=== PATIENT | male | born 1960 | race Caucasian/White ===

== ENCOUNTER → 2021-10-15 13:30 | Outpatient (BNVA) | payer SELFPAY | PROVIDERS: Family Provider Family Medicine; PCP Family Medicine; Visit Provider Family Medicine | DX: R10.32 Left lower quadrant pain (principal); E11.8 Type 2 diabetes mellitus with unspecified complications | CPT/HCPCS: 80053; 83036; 85025; 86140 ==

== ENCOUNTER → 2023-04-25 08:13 | Outpatient (BNVA) | payer SELFPAY | PROVIDERS: Family Provider Family Medicine; PCP Family Medicine; Visit Provider Family Medicine | DX: E11.9 Type 2 diabetes mellitus without complications (principal); Z51.81 Encounter for therapeutic drug level monitoring; R10.9 Unspecified abdominal pain; R53.81 Other malaise; R53.83 Other fatigue | CPT/HCPCS: 80053; 83036; 84443; 85025; 86141 ==

== ENCOUNTER 2023-06-16 17:07 | Outpatient (CLI) | payer SELFPAY ==
--- NOTE | 2023-06-16 17:00 | CT_ITS ---
WS: [id number] CT ABDOMEN AND PELVIS WITH CONTRAST HISTORY: Abdominal pain, RIGHT lower quadrant pain into the flank. TECHNIQUE: Imaging performed of the abdomen and pelvis with IV contrast. Single phase imaging of the abdomen. Coronal and sagittal reformats are submitted. All CT scans at [facility] use at [address] one of these dose optimization techniques: automated exposure control; mA and/or kV adjustment per patient size (includes targeted exams where dose is matched to clinical indication); or iterative re construction. IV CONTRAST: Omnipaque 350; 100 mL IV. Oral contrast: No DLP: 678.23 mGy.cm COMPARISON: None available. Lower thorax: 2 mm micronodule LEFT lung base. No mass. Heart is normal size. No hiatal hernia. Liver/biliary system: Normal size with no intrahepatic dilatation. Gallbladder: Status post cholecystectomy. Pancreas: Normal size pancreas and pancreatic duct. No adjacent inflammation. Spleen: Normal size spleen. No mass or infarct. Adrenal glands: Normal. Right kidney: Normal. Left kidney: Normal. Aorta: Mild atherosclerosis with no aneurysm. Small amount of noncalcified plaque in the proximal SMA but there is no occlusion. Celiac axis is normal. Lymphadenopathy: None. Free fluid: None. GI tract: Mild symmetric wall thickening of the stomach. There is a small filling defect within the s tomach along the greater curvature which could be a polyp. Also could be debris within the stomach. T his measures approximately 7 mm. No small bowel obstruction. Normal appendix. Abdominal wall: Unremarkable abdominal wall. No hernia. Pelvis: No free fluid or adenopathy within the pelvis. Bones: Prior LEFT lateral pedicle fusion at L1 3 4. Moderate LEFT and RIGHT foraminal narrowing at L3 -4. Osteophytic ridging around the femoral heads. Very dense calcification in the soft tissue of the LEFT pelvis near the acetabulum may be posttraumatic. IMPRESSION: 1. No acute abdominal or pelvic findings. 2. Normal appendix. 3. No significant diverticular disease. 4. No GI tract obstruction. 5. There is a small polypoid-like density within the stomach along the greater curvature. This may b e debris or a small gastric polyp. If clinically thought necessary this can be further evaluated by e ndoscopy. 6. Prior cholecystectomy. 7. No renal obstruction. 8. Mild atherosclerosis aorta and a small amount of noncalcified plaque in the proximal SMA.
[2023-06-16] MEDS: iohexol 350 mg/mL 500 mL Btl (per mL) IV (17:26)
== END 2023-06-16 17:08 | disposition home or self-care (01) ==
LOC: RAD 17:07
PROVIDERS: Family Provider Family Medicine; PCP Family Medicine; Visit Provider Family Medicine
DX: R10.9 Unspecified abdominal pain (principal); R93.3 Abnormal findings on diagnostic imaging of other parts of digestive tract; Z90.49 Acquired absence of other specified parts of digestive tract; I70.0 Atherosclerosis of aorta; K55.1 Chronic vascular disorders of intestine
CPT/HCPCS: 74177; Q9967

== ENCOUNTER 2023-07-06 01:28 | Emergency (ER) | payer SELFPAY ==
[2023-07-06 01:59] VITALS: BP 180/97; PULSE 85; RESP 18; TEMP 36.7; O2SAT 98
--- NOTE | 2023-07-06 02:07 | CTR_ITS ---
PROCEDURE INFORMATION: Exam: CT Abdomen And Pelvis Without Contrast Exam date and time: 07/06/2023 2:18 AM Age: 62 years old Clinical indication: Abdominal pain; Right; Prior surgery; Surgery date: 6+ months; Surgery type: Gb. Lumbar; Patient HX: C/O RT flank pain; Additional info: R flank pain TECHNIQUE: Imaging protocol: Computed tomography of the abdomen and pelvis without contrast. Radiation optimization: All CT scans at this facility use at least one of these dose optimization techniques: automated exposure control; mA and/or kV adjustment per patient size (includes targeted exams where dose is matched to clinical indication); or iterative reconstruction. COMPARISON: CT abdomen pelvis w con* [id number] 06/16/2023 5:18 PM RADIATION DOSE METRICS: Total DLP (mGy-cm): 856.3 FINDINGS: Liver: Normal. No mass. Gallbladder and bile ducts: Surgical clips are noted in gallbladder fossa compatible with a prior cholecystectomy. Pancreas: Normal. No ductal dilation. Spleen: Normal. No splenomegaly. Adrenal glands: Normal. No mass. Kidneys and ureters: The kidneys are normal in overall size and general contour without hydronephrosis or nephrolithiasis. Mild perinephric stranding is noted. Stomach and bowel: There is no evidence of small bowel obstruction. Colonic diverticulosis is noted. Stool is distributed throughout the colon. Appendix: No evidence of appendicitis. Intraperitoneal space: Unremarkable. No free air. No significant fluid collection. Vasculature: The abdominal aorta is normal in course and caliber with scattered calcific atheromatous plaque. Lymph nodes: Unremarkable. No enlarged lymph nodes. Urinary bladder: Unremarkable as visualized. Reproductive: Unremarkable as visualized. Bones/joints: Lumbar fixation hardware is present. Degenerative changes are noted in the bones. There is exostosis and calcific tendinopathy anterior to the left iliac bone. Soft tissues: Unremarkable. Other findings: Noncontrast technique limits assessment. CT/CT kidney stone [id number] IMPRESSION: Limited noncontrast CT. Postsurgical change. No evidence for urolithiasis or obstructive uropathy. Colonic diverticulosis.
[2023-07-06] MEDS: ondansetron 2 mg/ML SDV 2 mL 4 MG IVP (02:13)
[2023-07-06] MEDS: sodium chloride 0.9% 1,000 ML 999 ML IV (02:14)
[2023-07-06 02:17] LABS: Basophils # 0.1 10^3/uL (0.0-0.1); Basophils % 0.9 %; Eosinophils # 0.1 10^3/uL (0.0-0.8); Eosinophils % 1.1 %; Hematocrit 40.5 % (37-53); Lymphocytes # 1.8 10^3/uL (0.8-4.8); Lymphocytes % 24.2 %; Mean Corpuscular HGB Conc 35.6 g/dL (30-55); Mean Corpuscular Hemoglobin 31.2 pg (27-33); Mean Corpuscular Volume 87.7 fl (82-101); Mean Platelet Volume 9.6 fL (7.4-10.4); Monocytes # 0.4 10^3/uL (0.2-0.9); Monocytes % 4.8 %; Neutrophils # 5.13 10^3/uL (1.8-7.7); Neutrophils % 68.9 %; Nucleated Red Blood Cells % 0 %; Platelet Count 289 10^3/cmm (157-399); Red Blood Count 4.62 10^6/uL (3.85-5.65); Red Cell Distribution Width 12.5 % (12.1-15.1); White Blood Count 7.45 10^3/uL (3.29-11.43)
[2023-07-06 02:46] VITALS: RESP 18
[2023-07-06 02:46] LABS: Alanine Aminotransferase 27 U/L (0-41); Alkaline Phosphatase 71 U/L (40-130); Aspartate Amino Transferase 23 U/L (0-40); Blood Urea Nitrogen 10 mg/dL (8-23); Calcium 9.1 mg/dL (8.5-10.5); Carbon Dioxide 22 mmol/L (22-29); Chloride 100 mmol/L (98-107); Glomerular Filtration Rate 75.2 mL/min (90-130); Glucose 154 mg/dL (65-115); Lipase 37 U/L (13-60); Osmolality Calculated 280 mOsm/kg (285-295); Sodium 134 mmol/L (136-145); Total Bilirubin 0.4 mg/dL (0.15-1.2)
[2023-07-06] MEDS: morphine 4 mg/mL SDV 1 mL IVP (02:46)
[2023-07-06 02:50] LABS: Anion Gap 15.8 (5-19); Potassium 3.8 mmol/L (3.5-5.1)
[2023-07-06 03:02] VITALS: BP 172/99; PULSE 89; RESP 16; O2SAT 98
[2023-07-06 03:26] LABS: Add Urine Microscopic? NO; Charge for UA Resulting for Rev
[2023-07-06 03:31] LABS: Bilirubin Urine Neg (Negative); Blood Urine Neg (Negative); Glucose Urine UA 1+ (Normal); Ketones Urine Negative (Negative); Leukocyte Esterase Urine Negative (Negative); Nitrate Urine Negative (Negative); Protein Urine Neg (Negative); Specific Gravity, Urine 1.015 (1.005-1.030); Urine Appearance Clear (CLEAR); Urine Color Yellow (Yellow); Urobilinogen Urine Norm (Negative); pH Urine 5 (5-7)
[2023-07-06] MEDS: ketorolac 30 mg/mL INJ IVP (04:10)
[2023-07-06 04:56] VITALS: BP 177/107; PULSE 87; RESP 18; O2SAT 97
--- NOTE | 2023-07-06 16:27 | W.ED.ABDPA2 ---
HPI - Abdominal Pain General: Chief Complaint: Abdominal Pain Stated Complaint: possible kidney stone Time Seen by Provider: 07/06/23 02:03 History of Present Illness: 62 year old male with a distant prior history of kidney stone. He presents with right sided flank and right lower quadrant pain. He notes that he felt this pain a couple of weeks ago, but seemed to improve. It's been increased for the last couple of days, but tonight, the pain got severe. And he vomited in the lobby. No fever. No diarrhea. He has a history of cholecystectomy. MD elicited complaint: flank pain Associated Symptoms: Reports nausea and vomiting; Denies chills, diarrhea, dysuria, fever(s), hematochezia and hematuria Review of Systems Const: Denies: fever(s), chills or body aches Eyes: Denies: change in vision Card: Denies: chest pain or palpitations Resp: Denies: dyspnea, productive cough, non-productive cough or wheezing GI: Reports: abdominal pain, nausea and vomiting; Denies: diarrhea or hematochezia : Reports: flank pain; Denies: difficulty urinating, dysuria or hematuria Skin/Breast: Denies: rash Neuro: Denies: headache(s), weakness in extremities, dizziness or confusion PFSH ED PFSH: Medical History Myocardial infarction S/P stent - 2019, other lesions 40 and 60% blocked Thyroid nodule Biopsy in 2016 - [facility] History of DVT (deep vein thrombosis) 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 Diabetes mellitus type 2, uncontrolled Surgical History Benign tumor of groin Right groin tumor removal - Benign History of lumbar surgery L4-L5 surgery History of hip surgery H/O left knee surgery Scope for torn MCL History of cholecystectomy Hx of carpal tunnel repair right History of knee replacement Right knee x 3 - last 2013 Family History Father Colon cancer in 2010 Mother Alzheimer's dementia Social History Smoking and tobacco/nicotine status: never used tobacco/nicotine Alcohol intake: never Substance/Drug Use: never Physical Exam Const: COMMON NORMALS: no acute distress GENERAL APPEARANCE: cooperative and ill appearing (mildly); not frail appearing HENMT: COMMON NORMALS: normocephalic, atraumatic and Normal external nose present HEAD & SCALP: normocephalic and atraumatic FACE & SINUS: normal facial exam and face symmetric NOSE: Normal external nose present Eye: COMMON NORMALS: Equal, round and reactive pupils present and EOMs intact bilaterally PUPIL: Yes Equal, round and reactive pupils present Neck/C-Spine: GENERAL: Yes trachea midline Chest: CHEST: Yes Symmetrical chest wall rise Resp: COMMON NORMALS: normal respiratory effort, No retractions, No use of accessory muscles and clear to auscultation bilaterally AUSCULTATION: clear to auscultation bilaterally Cardio: COMMON NORMALS: regular rate and regular rhythm RATE: regular rate RHYTHM: regular rhythm GI: COMMON NORMALS: Normal to inspection, nondistended, normoactive bowel sounds present and Soft to palpation PALPATION: Yes Soft to palpation and Yes Tenderness to palpation present (GI) Details: RLQ : BLADDER/KIDNEY EXAM: Yes CVA tenderness on the right Back/Pelvis: GENERAL BACK: Yes CVA tenderness Extremity: COMMON NORMALS: no pedal edema Neuro: [place] COMA SCALE: document GCS findings [place] coma scale eye opening: Spontaneous [place] coma scale verbal response: Orientated [place] coma scale motor response: Obey commands [place] coma scale total score: 15 SENSORY EXAM: Yes extremities (intact) Psych: COMMON NORMALS: speech normal SPEECH: Yes normal speech Skin: COMMON NORMALS: no rashes or lesions noted GENERAL SKIN EXAM: no rashes or lesions noted Course Vital Signs: Vital signs: Vital Signs Temperature 98.0 F 07/06/23 01:59 Pulse Rate 87 07/06/23 04:56 Respiratory Rate 18 07/06/23 04:56 Blood Pressure 177/107 07/06/23 04:56 Pulse Oximetry 97 07/06/23 04:56 Oxygen Delivery Me thod Room Air 07/06/23 03:02 MDM - Abdominal Pain Medical Decision Making Right flank pain and RLQ pain. No fever. Pain much better controlled currently. CBC normal. CRP is 3. Lab otherwise not remarkable. CT scan does not show a cause. may be a passed stone. Enlarged bladder on CT. Pt voided afterward with 280 post void. Technically retention, but will elect not to place nicole at this time. Discharge to outpt fu. return for worsening symptoms. Lab Data 07/06/23 02:10 07/06/23 02:10 Labs/Radiology: Radiology Impressions Abdomen/Pelvis CT 07/06/23 02:07 IMPRESSION: Limited noncontrast CT. Postsurgical change. No evidence for urolithiasis or obstructive uropathy. Colonic diverticulosis. Laboratory Results WBC 7.45 10^3/uL (3.29-11.43) 07/06/23 02:10 RBC 4.62 10^6/uL (3.85-5.65) 07/06/23 02:10 Hgb 14.40 g/dL (11.27-16.99) 07/06/23 02:10 Hct 40.5 % (37-53) 07/06/23 02:10 MCV 87.7 fl (82-101) 07/06/23 02:10 MCH 31.2 pg (27-33) 07/06/23 02:10 MCHC 35.6 g/dL (30-55) 07/06/23 02:10 RDW 12.5 % (12.1-15.1) 07/06/23 02:10 Plt Count 289 10^3/cmm (157-399) 07/06/23 02:10 MPV 9.6 fL (7.4-10.4) 07/06/23 02:10 Neut % (Auto) 68.9 % 07/06/23 02:10 Lymph % (Auto) 24.2 % 07/06/23 02:10 Mcleod % (Auto) 4.8 % 07/06/23 02:10 Eos % (Auto) 1.1 % 07/06/23 02:10 Baso % (Auto) 0.9 % 07/06/23 02:10 Neut # (Auto) 5.13 10^3/uL (1.8-7.7) 07/06/23 02:10 Lymph # (Auto) 1.8 10^3/uL (0.8-4.8) 07/06/23 02:10 Mcleod # (Auto) 0.4 10^3/uL (0.2-0.9) 07/06/23 02:10 Eos # (Auto) 0.1 10^3/uL (0.0-0.8) 07/06/23 02:10 Baso # (Auto) 0.1 10^3/uL (0.0-0.1) 07/06/23 02:10 Nucleated RBC % (auto) 0 % 07/06/23 02:10 Nucleated RBCs # 0.0 /100WBC 07/06/23 02:10 Sodium 134 mmol/L (136-145) L 07/06/23 02:10 Potassium 3.8 mmol/L (3.5-5.1) 07/06/23 02:10 Chloride 100 mmol/L (98-107) 07/06/23 02:10 Carbon Dioxide 22 mmol/L (22-29) 07/06/23 02:10 Anion Gap 15.8 (5-19) 07/06/23 02:10 BUN 10 mg/dL (8-23) 07/06/23 02:10 Creatinine 1.0 mg/dL (0.7-1.2) 07/06/23 02:10 GFR Calculation 75.2 mL/min (90-130) L 07/06/23 02:10 Glucose 154 mg/dL (65-115) H 07/06/23 02:10 Calculated Osmolality 280 mOsm/kg (285-295) L 07/06/23 02:10 Calcium 9.1 mg/dL (8.5-10.5) 07/06/23 02:10 Total Bilirubin 0.4 mg/dL (0.15-1.2) 07/06/23 02:10 AST 23 U/L (0-40) 07/06/23 02:10 ALT 27 U/L (0-41) 07/06/23 02:10 Alkaline Phosphatase 71 U/L (40-130) 07/06/23 02:10 C-Reactive Protein 3.0 mg/L (0.0-4.9) 07/06/23 02:10 Total Protein 7.0 g/dL (6.6-8.7) 07/06/23 02:10 Albumin 4.0 g/dL (3.5-5.2) 07/06/23 02:10 Globulin 3.0 g/dL (1.3-4.6) 07/06/23 02:10 Lipase 37 U/L (13-60) 07/06/23 02:10 Urine Color Yellow (Yellow) 07/06/23 03:19 Urine Appearance Clear (CLEAR) 07/06/23 03:19 Urine pH 5 (5-7) 07/06/23 03:19 Ur Specific [place] 1.015 (1.005-1.030) 07/06/23 03:19 Urine Protein Neg (Negative) 07/06/23 03:19 Urine Glucose (UA) 1+ (Normal) H 07/06/23 03:19 Urine Ketones Negative (Negative) 07/06/23 03:19 Urine Blood Neg (Negative) 07/06/23 03:19 Urine Nitrate Negative (Negative) 07/06/23 03:19 Urine Bilirubin Neg (Negative) 07/06/23 03:19 Urine Urobilinogen Norm mg/dL (Negative) 07/06/23 03:19 Ur Leukocyte Esterase Negative (Negative) 07/06/23 03:19 All radiology interpretation(s) finalized by discharge Discharge Plan Discharge Patient Disposition: Home Clinical Impression: Renal colic on right side Condition: Stable Prescriptions: New hydrocodone-acetaminophen 5-325 mg tablet 1 tab PO Q8H PRN (Reason: pain) Qty: 7 0RF ketorolac 10 mg tablet 10 mg PO TID PRN (Reason: pain) Qty: 10 0RF ondansetron 4 mg tablet,disintegrating 4 mg PO Q6H PRN (Reason: nausea and vomiting) Qty: 14 0RF No Action metformin 1,000 mg tablet 1,000 mg PO BID Qty: 60 6RF atorvastatin 20 mg tablet 20 mg PO DAILY Qty: 30 3RF (DME) Dexcom G7 Marketing Finance Specialist Misc See Rx Instructions .Route Qty: 1 0RF Rx Instructions: As directed (DME) Dexcom G7 Sensor Device See Rx Instructions .Route Qty: 1 0RF Rx Instructions: As directed glipizide 10 mg tablet 5 mg PO BID insulin glargine [Lantus Solostar U-100 Insulin] 100 unit/mL (3 mL) insulin pen 30 unit SUBCUT DAILY Qty: 15 3RF Rx Instructions: Increase by 5 units every 3 days if all fasting glucose above 150 (DME) pen needle, diabetic [BD Ultra-Fine Orig Pen Needle] 29 gauge x 1/2 needle See Rx Instructions .Route Qty: 100 3RF Rx Instructions: As directed hydrochlorothiazide 12.5 mg tablet 12.5 mg PO DAILY Qty: 30 6RF Discharge Orders: Discharge ED (Routine); Ordered 07/06/23 Ordered By: Jamir Cardona Referrals: Carrillo Suarez MD [Primary Care Provider] - 1-3 days Patient Instructions: Renal Colic (ED), Abdominal Pain (ED), Opioid Safety, Pain Management Activity Restrictions/Additional Instructions: Use medication as needed. Return for worsening pain despite treatment, fever greater than 100, vomiting liquids or medications, other concerning symptoms. See your doctor this coming week. 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
== END 2023-07-06 04:57 | disposition home or self-care (01) ==
PROVIDERS: Emergency Provider Emergency Medicine; PCP Family Medicine
DX: N23 Unspecified renal colic (principal); Z79.84 Long term (current) use of oral hypoglycemic drugs; Z79.4 Long term (current) use of insulin; I25.2 Old myocardial infarction; E11.9 Type 2 diabetes mellitus without complications
CPT/HCPCS: 51798; 74176; 80053; 81003; 83690; 85025; 86140; 96361; 96374; 96375; 99285; J1885; J2270; J2405; J7030

== ENCOUNTER → 2023-07-29 16:12 | Outpatient (BNVA) | payer SELFPAY | PROVIDERS: PCP Family Medicine; Visit Provider Family Medicine | DX: R10.9 Unspecified abdominal pain (principal); E11.9 Type 2 diabetes mellitus without complications; R30.0 Dysuria | CPT/HCPCS: 87086 ==

== ENCOUNTER 2023-12-18 06:21 | Emergency (ER) | payer MEDICARE, OTHER, SELFPAY ==
[2023-12-18 06:30] VITALS: BP 174/140; PULSE 105; RESP 20; TEMP 36.6; O2SAT 98; BMI 25.0
--- NOTE | 2023-12-18 06:30 | W.ED.GENADLT ---
HPI - General Adult General: Chief complaint: Back Pain/Injury Stated complaint: Back,leg, and lower abd pain Time Seen by Provider: 12/18/23 06:28 History of Present Illness: 63-year-old male presents emergency room complaining of pain in the groin radiating down the left leg. Began several weeks ago it has been more severe in the last week he was seen about a week ago by a chiropractor and had an adjustment done he said it actually seemed to get worse after that. He was seen again yesterday by another chiropractor had a similar experience and that the pain was worse after the treatment. On arrival he is sitting on the bed does not tolerate exam well due to pain. Patient also recently had a colonoscopy and EGD in June of this year he had a CT is a question of a gastric mass although subsequent CT did not show a gastric graft there was a question of the first 1 if it was just food debris. Per the patient EGD was normal but 2 colon polyps were removed. He is also complaining of groin pain and a swollen left testicle but denies any dysuria urgency or frequency or hematuria. No trauma to the testicles. Patient is an insulin-dependent diabetic. Patient previously has had back surgery at the L4-5 level Associated symptoms: Deny chest pain, dyspnea or rash Review of Systems Const: Denies: fever(s) or chills Card: Denies: chest pain Resp: Denies: dyspnea GI: Denies: abdominal pain : Reports: testicular pain and scrotal swelling (Left testicle swollen); Denies: dysuria, urinary frequency or urinary urgency Musc: Reports: back pain; Denies: neck pain Skin/Breast: Denies: rash [facility] ED PFSH: Medical History Myocardial infarction S/P stent - 2019, other lesions 40 and 60% blocked Thyroid nodule Biopsy in 2016 - [facility] History of DVT (deep vein thrombosis) 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 Diabetes mellitus type 2, uncontrolled Surgical History Benign tumor of groin Right groin tumor removal - Benign History of lumbar surgery L4-L5 surgery History of hip surgery H/O left knee surgery Scope for torn MCL History of cholecystectomy Hx of carpal tunnel repair right History of knee replacement Right knee x 3 - last 2013 Family History Father Colon cancer in 2010 Mother Alzheimer's dementia Social History Smoking and tobacco/nicotine status: never used tobacco/nicotine Alcohol intake: never Substance/Drug Use: never Physical Exam Const: GENERAL APPEARANCE: cooperative ORIENTATION/CONSCIOUSNESS: Yes awake, Yes oriented to person, Yes oriented to place and Yes oriented to time HENMT: COMMON NORMALS: normocephalic, atraumatic and hearing grossly normal bilaterally HEAD & SCALP: normocephalic and atraumatic Resp: COMMON NORMALS: normal respiratory effort, No retractions, No use of accessory muscles and clear to auscultation bilaterally AUSCULTATION: clear to auscultation bilaterally Cardio: COMMON NORMALS: regular rate, regular rhythm and No murmurs present (Cardio) RATE: regular rate RHYTHM: regular rhythm GI: COMMON NORMALS: Soft to palpation and No hepatosplenomegaly present AUSCULTATION: Yes normoactive bowel sounds PALPATION: Yes Soft to palpation, No Tenderness to palpation present (GI), No Guarding due to palpation present (GI) and Yes No hepatosplenomegaly present Extremity: COMMON NORMALS: normal to inspection, capillary refill normal, no clubbing, cyanosis or edema, no calf tenderness and no pedal edema OTHER: Straight leg raising positive in the left leg dorsal/plantarflexion strength in the left leg is somewhat decreased although is difficult to fully assess due to pain. Deep tendon reflex patellar tendon on the left +1 of 4. Neuro: SENSORIUM/ORIENTATION: Yes oriented to person, Yes oriented to place and Yes oriented to time Skin: COMMON NORMALS: no rashes or lesions noted GENERAL SKIN EXAM: no rashes or lesions noted Course Vital Signs: Vital signs: Vital Signs Temperature 97.9 F 12/18/23 06:35 Pulse Rate 76 12/18/23 10:34 Respiratory Rate 18 12/18/23 07:03 Blood Pressure 180/98 12/18/23 10:34 Pulse Oximetry 97 12/18/23 10:34 Oxygen Delivery Me thod Room Air 12/18/23 06:42 [facility] - General Adult Medical Decision Making Symptoms are improved. He has not had any fecal incontinence he does have some urinary retention but believe it is due to his BPH. On repeat exam he was much improved his deep tendon reflexes are +2/4 patellar tendon sensation lower extremities is normal and straight legs raising test elicits less pain. Will discharge him home and set him up for a MRI of the lumbar spine. There is. If he has worsening symptoms. We did also start him on tamsulosin alone. Lab Data 12/18/23 07:09 12/18/23 07:09 Radiology Impressions Scrotum Ultrasound 12/18/23 09:03 IMPRESSION: 1. No testicular mass or torsion identified. 2. No hydrocele. 3. No epididymitis. Laboratory Results WBC 7.12 10^3/uL (3.29-11.43) 12/18/23 07:09 RBC 4.67 10^6/uL (3.85-5.65) 12/18/23 07:09 Hgb 14.80 g/dL (11.27-16.99) 12/18/23 07:09 Hct 41.8 % (37-53) 12/18/23 07:09 MCV 89.5 fl (82-101) 12/18/23 07:09 MCH 31.7 pg (27-33) 12/18/23 07:09 MCHC 35.4 g/dL (30-55) 12/18/23 07:09 RDW 12.9 % (12.1-15.1) 12/18/23 07:09 Plt Count 302 10^3/cmm (157-399) 12/18/23 07:09 MPV 9.9 fL (7.4-10.4) 12/18/23 07:09 Neut % (Auto) 69.9 % 12/18/23 07:09 Lymph % (Auto) 21.5 % 12/18/23 07:09 [place] % (Auto) 6.7 % 12/18/23 07:09 Eos % (Auto) 0.8 % 12/18/23 07:09 Baso % (Auto) 0.8 % 12/18/23 07:09 Neut # (Auto) 4.97 10^3/uL (1.8-7.7) 12/18/23 07:09 Lymph # (Auto) 1.5 10^3/uL (0.8-4.8) 12/18/23 07:09 [place] # (Auto) 0.5 10^3/uL (0.2-0.9) 12/18/23 07:09 Eos # (Auto) 0.1 10^3/uL (0.0-0.8) 12/18/23 07:09 Baso # (Auto) 0.1 10^3/uL (0.0-0.1) 12/18/23 07:09 Nucleated RBC % (auto) 0 % 12/18/23 07:09 Nucleated RBCs # 0.0 /100WBC 12/18/23 07:09 Sodium 136 mmol/L (136-145) 12/18/23 07:09 Potassium 4.2 mmol/L (3.5-5.1) 12/18/23 07:09 Chloride 99 mmol/L (98-107) 12/18/23 07:09 Carbon Dioxide 25 mmol/L (22-29) 12/18/23 07:09 Anion Gap 16.2 (5-19) 12/18/23 07:09 BUN 12 mg/dL (8-23) 12/18/23 07:09 Creatinine 0.8 mg/dL (0.7-1.2) 12/18/23 07:09 GFR Calculation 97.0 mL/min (90-130) 12/18/23 07:09 Glucose 179 mg/dL (65-115) H 12/18/23 07:09 Calculated Osmolality 286 mOsm/kg (285-295) 12/18/23 07:09 Calcium 8.9 mg/dL (8.5-10.5) 12/18/23 07:09 Total Bilirubin 0.7 mg/dL (0.15-1.2) 12/18/23 07:09 AST 19 U/L (0-40) 12/18/23 07:09 ALT 27 U/L (0-41) 12/18/23 07:09 Alkaline Phosphatase 61 U/L (40-130) 12/18/23 07:09 Total Protein 7.3 g/dL (6.6-8.7) 12/18/23 07:09 Albumin 4.3 g/dL (3.5-5.2) 12/18/23 07:09 Globulin 3.0 g/dL (1.3-4.6) 12/18/23 07:09 Urine Color Yellow (Yellow) 12/18/23 07:55 Urine Appearance Clear (CLEAR) 12/18/23 07:55 Urine pH 5.0 (5-7) 12/18/23 07:55 Ur Specific [place] 1.029 (1.005-1.030) 12/18/23 07:55 Urine Protein Trace (Negative) A 12/18/23 07:55 Urine Glucose (UA) 2+ (Normal) H 12/18/23 07:55 Urine Ketones 1+ (Negative) H 12/18/23 07:55 Urine Blood Negative (Negative) 12/18/23 07:55 Urine Nitrate Negative (Negative) 12/18/23 07:55 Urine Bilirubin Negative (Negative) 12/18/23 07:55 Urine Urobilinogen 1.0 mg/dL (Negative) 12/18/23 07:55 Ur Leukocyte Esterase Negative (Negative) 12/18/23 07:55 Urine RBC 0-2 /hpf (0-2) 12/18/23 07:55 Urine WBC 0-5 /hpf (0-5) 12/18/23 07:55 Ur Squamous Epith Cells 0-5 /hpf (0-5) 12/18/23 07:55 Amorphous Sediment Not Reportable 12/18/23 07:55 Urine Bacteria None seen /hpf (NONE) 12/18/23 07:55 Hyaline Casts 4.95 /lpf 12/18/23 07:55 All radiology interpretation(s) finalized by discharge Discharge Plan Discharge Patient Disposition: Home Clinical Impression: Lumbar radiculopathy, Diabetes mellitus type 2, uncontrolled, Benign prostatic hyperplasia, Epididymitis Condition: Stable Prescriptions: New tamsulosin 0.4 mg capsule 0.4 mg PO DAILY Qty: 30 0RF tizanidine 4 mg tablet 4 mg PO Q6H PRN (Reason: muscle spasticity) Qty: 20 0RF Rx Instructions: do not exceed 3 doses per 24 hrs hydrocodone-acetaminophen 5-325 mg tablet 1 tab PO Q6H PRN (Reason: pain) Qty: 12 0RF diclofenac sodium 75 mg tablet,delayed release (DR/EC) 75 mg PO Q12H PRN (Reason: pain) Qty: 20 0RF Medrol (Luis) 4 mg tablets,dose pack See Rx Instructions .ROUTE .COMPLEX Qty: 21 0RF Rx Instructions: orally per package directions Discontinued ketorolac 10 mg tablet 10 mg PO TID PRN (Reason: Pain) No Action (DME) Dexcom G7 Technical Services Consultant Misc See Rx Instructions .Route Qty: 1 0RF Rx Instructions: As directed (DME) Dexcom G7 Sensor Device See Rx Instructions .Route Qty: 1 0RF Rx Instructions: As directed glipizide 10 mg tablet 10 mg PO BID metformin 1,000 mg tablet 500 mg PO BID (DME) pen needle, diabetic [BD Ultra-Fine Orig Pen Needle] 29 gauge x 1/2 needle See Rx Instructions .Route Qty: 100 3RF Rx Instructions: As directed hydrochlorothiazide 12.5 mg tablet 12.5 mg PO DAILY Qty: 30 6RF omeprazole 40 mg capsule,delayed release(DR/EC) 40 mg PO DAILY Qty: 90 3RF insulin glargine [Lantus Solostar U-100 Insulin] 100 unit/mL (3 mL) insulin pen See Rx Instructions .ROUTE .COMPLEX Qty: 15 6RF Dose Instruction: INJECT 30 UNITS UNDER THE SKIN ONCE DAILY. INCREASE BY 5 UNITS EVERY 3 DAYS IF ALL FASTING GLUCOSE ABOVE 150 Rx Instructions: INJECT 30 UNITS UNDER THE SKIN ONCE DAILY. INCREASE BY 5 UNITS EVERY 3 DAYS IF ALL FASTING GLUCOSE ABOVE 150 hydrocodone-acetaminophen 5-325 mg tablet 1 tab PO Q6H PRN (Reason: Pain, Severe) Discharge Orders: Discharge ED (Routine); Ordered 12/18/23 Ordered By: Tray Walker Referrals: Carrillo Suarez MD [Primary Care Provider] - Discharge Diet: Usual diet Discharge Activity: Increase activity as tolerated Patient Instructions: Opioid Safety, Pain Management Activity Restrictions/Additional Instructions: Thank you for choosing [facility] for your healthcare needs today. It is very important that you follow up as instructed or that you return to the Emergency Department should you have concerns or if your condition changes or worsens in any way. You are seen in the emergency room and back pain with left leg symptoms. Symptoms and function improved with pain control in the emergency room. Do recommend that you have an MRI of your lumbar spine. 1 has been ordered but you should need to follow-up with your primary care doctor. site project manager will make an appointment for an MRI tomorrow AM. If you have worsening symptoms return. You did complain of pain in the testicles as well. There are some mild epididymitis this is likely inflammatory due to your previous vasectomy the steroids and anti-inflammatories will be helpful with this. Coding Level of Care Code ED Dry Placer Machine Operator for Brandie Kaplan
[2023-12-18 06:35] VITALS: BP 174/140; PULSE 105; RESP 20; TEMP 36.6; O2SAT 98
[2023-12-18 06:42] VITALS: BP 150/121; PULSE 96; RESP 16; O2SAT 98
[2023-12-18] MEDS: ondansetron 2 mg/ML SDV 2 mL 4 MG IVP (07:00)
[2023-12-18] MEDS: dexamethasone 10 mg/mL INJ IM (07:01)
[2023-12-18] MEDS: ketorolac 30 mg/mL INJ IVP (07:02)
[2023-12-18 07:03] VITALS: RESP 18; O2SAT 98
[2023-12-18] MEDS: morphine 4 mg/mL SDV 1 mL IVP (07:03)
[2023-12-18] MEDS: orphenadrine 30 mg/mL Inj 2 mL 60 MG IM (07:04)
[2023-12-18 07:20] LABS: Basophils # 0.1 10^3/uL (0.0-0.1); Basophils % 0.8 %; Eosinophils # 0.1 10^3/uL (0.0-0.8); Eosinophils % 0.8 %; Hematocrit 41.8 % (37-53); Lymphocytes # 1.5 10^3/uL (0.8-4.8); Lymphocytes % 21.5 %; Mean Corpuscular HGB Conc 35.4 g/dL (30-55); Mean Corpuscular Hemoglobin 31.7 pg (27-33); Mean Corpuscular Volume 89.5 fl (82-101); Mean Platelet Volume 9.9 fL (7.4-10.4); Monocytes # 0.5 10^3/uL (0.2-0.9); Monocytes % 6.7 %; Neutrophils # 4.97 10^3/uL (1.8-7.7); Neutrophils % 69.9 %; Nucleated Red Blood Cells % 0 %; Platelet Count 302 10^3/cmm (157-399); Red Blood Count 4.67 10^6/uL (3.85-5.65); Red Cell Distribution Width 12.9 % (12.1-15.1); White Blood Count 7.12 10^3/uL (3.29-11.43)
[2023-12-18 07:37] LABS: Alanine Aminotransferase 27 U/L (0-41); Albumin Level 4.3 g/dL (3.5-5.2); Alkaline Phosphatase 61 U/L (40-130); Anion Gap 16.2 (5-19); Aspartate Amino Transferase 19 U/L (0-40); Blood Urea Nitrogen 12 mg/dL (8-23); Calcium 8.9 mg/dL (8.5-10.5); Carbon Dioxide 25 mmol/L (22-29); Chloride 99 mmol/L (98-107); Glucose 179 mg/dL (65-115); Osmolality Calculated 286 mOsm/kg (285-295); Potassium 4.2 mmol/L (3.5-5.1); Sodium 136 mmol/L (136-145); Total Bilirubin 0.7 mg/dL (0.15-1.2); Total Protein 7.3 g/dL (6.6-8.7)
--- NOTE | 2023-12-18 07:44 | PC.PHAR ---
PT STATES STILL TAKES GLIPIZIDE 10MG TWICE DAILY-LAST FILL DATE 05/30/23 STOPPED TAKING FOR AWHILE, AND METFORMIN 1,000MG TWICE DAILY LAST FILL 07/28/23 30DS.
[2023-12-18 08:06] LABS: Charge for UA Resulting for Rev
[2023-12-18 08:08] LABS: Bilirubin Urine Negative (Negative); Blood Urine Negative (Negative); Glucose Urine UA 2+ (Normal); Ketones Urine 1+ (Negative); Leukocyte Esterase Urine Negative (Negative); Nitrate Urine Negative (Negative); Protein Urine Trace (Negative); Specific Gravity, Urine 1.029 (1.005-1.030); Urine Appearance Clear (CLEAR); Urine Color Yellow (Yellow)
[2023-12-18 08:13] LABS: Bacteria Urine None Seen /hpf; Hyaline Casts Urine 4.95 /lpf; RBC Urine 0-2 /hpf (0-2); Squamous Epithelial Cell Urine 0-5 /hpf (0-5); WBC Urine 0-5 /hpf (0-5)
--- NOTE | 2023-12-18 09:03 | US_ITS ---
WS: [id number] TESTICULAR ULTRASOUND HISTORY: pain COMPARISON: None available. TECHNIQUE: Real-time and color Doppler imaging or utilized to perform a testicular ultrasound. Right testicle: 4.3 cm x 2.8 cm x 2.9 cm. Normal size and echogenicity. No mass or torsion. Normal color Doppler is present throughout. Systolic and diastolic velocities are both present. No significant hydrocele. Right epididymis: Normal epididymis with no increased vascularity. Left testicle: 3.1 cm x 2.9 cm x 3.1 cm. Normal size and echogenicity. No mass or torsion. There is a cyst in the periphery of the LEFT testic le which may be a tunica albuginea cyst. No solid mass. Normal color Doppler is present throughout. Systolic and diastolic velocities are both present. No significant hydrocele. Left epididymis: Mildly thickened epididymis. No evidence for acute epididymitis. US/US scrotum [id number] IMPRESSION: 1. No testicular mass or torsion identified. 2. No hydrocele. 3. No epididymitis.
[2023-12-18 09:18] VITALS: BP 183/103; PULSE 76; O2SAT 97
[2023-12-18 10:34] VITALS: BP 180/98; PULSE 76; O2SAT 97
== END 2023-12-18 10:36 | disposition home or self-care (01) ==
PROVIDERS: Emergency Provider Family Medicine; PCP Family Medicine
DX: N45.1 Epididymitis (principal); E11.9 Type 2 diabetes mellitus without complications; M54.16 Radiculopathy, lumbar region; N40.0 Benign prostatic hyperplasia without lower urinary tract symptoms; Z79.4 Long term (current) use of insulin; Z79.84 Long term (current) use of oral hypoglycemic drugs; I25.2 Old myocardial infarction
CPT/HCPCS: 76870; 80053; 81003; 81015; 85025; 96372; 96374; 96375; 99285; J1100; J1885; J2270; J2360; J2405

== ENCOUNTER 2024-12-18 19:25 | Emergency (ER) | payer MEDICARE, OTHER, SELFPAY ==
--- OUTSIDE RECORDS SUMMARY | 2019-03-22 05:40 | XMS_ITS | Continuity of Care Document ---
Author Organization [facility] Address [address] [place] [address] Phone Care Team Providers Care Tin Flipper Name Role Phone Xiomara Whipple NP Unavailable Unavailable Allergies, Adverse Reactions, Alerts Substance Reaction Status Criticality No Known Allergies Active No Inform ation Medications Medication Instructions Dosage Effective Dates (start - stop) Status Comments Voltaren 1 % topical gel apply thin layer by topical route 4 times every day to the affected area(s) - Active aspirin 81 mg tablet,delayed release take 1 tablet by oral route every day 81 MG - Active clopidogrel 75 mg tablet take 1 tablet by oral route every day 75 MG - Active metoprolol succinate ER 25 mg tablet,extended release 24 hr take 1 tablet by oral route every day 25 MG - Active omeprazole 20 mg capsule,delayed release take 1 capsule by oral route 2 times every day 30 minutes to 1 hour before a meal 20 MG - Active metformin 1,000 mg tablet take 1 tablet by oral route every day in morning - Active Procedures Procedure Date OFFICE/OUTPATIENT VISIT [facility] Advance Directives Directive Yes / No Effective Date File Name Other Directive No N/A N/A WARNING:The information contained in this section is historical and is provided for information only and does not constitute a legal document or any assurance that the information is still accurate. Please verify the information with the ortiz of the legal document before using it for clinical purposes. Encounters Encounter Description Practice Location Reason(s) For Visit Diagnoses Date Provider Providers Copied on Encounter OFFICE/OUTPA TIENT VISIT [facility], [address] [place] [address], [id number], [place] tel:[phone] [facility] Heart disease (chief complaint) Musculoske letal pain (chief complaint) hand pain (chief complaint) Adult BMI 31.0-31.9Coronary artery disease with angina pectoris, unspecified vessel or lesion type, unspecified whether [place] or transplanted heartOsteoarthritis of multiple joints, unspecified osteoarthritis typeRight hand pain 9 Sarabjit Solano. [address] [place] [address], [id number], . tel:[phone] Referring Provider: Xiomara Whipple, [address] [place] [address], [id number] . tel:[phone] Family History Family Member Type Diagnosis Age At Onset No Information Payers Payer name Insurance type Covered republican ID Authoriza tion(s) No Information Social History Type Description Quantity Date Captured Comments Alcohol Use Details Unknown Caffeine Use Details Unknown Tobacco Use Status Current non-smoker 19 Smoking Status Never smoker Non-Smoking Tobacco Use Details : No Details Available : No Details Available Sex Male Sexual Orientation Straight or heterosexual Gender Identity Male Vital Signs Date / Time: Height Weight BMI Pulse Rate Blood Pressure Temperature Respiratory Rate Body Surface Area Head Circumference Head Circ. Percentile Wt./Rolando. Percentile BMI percentile Pulse Ox Inhaled Ox 11:02 AM 74.00 in 109.769 kg (242.00 lbs) 31.0 7 kg/m eter (2) 76 /min 120/70 mm[Hg] 97.80 F 98 % Chief Complaint And Reason For Visit From encounter dated '03/22/2019 10:40'. Heart disease (chief complaint). Description: He has been managed with antiplatelet therapy and beta-ovi therapy. Associated symptoms include increased fatigue. Pertinent negatives include chest pain, chest pressure or discomfort, dyspnea, irregular heartbeat/palpitations and irritability. Addit ional information: Patient presents for hospital follow-up following STEMI with stent to mid-RCA. He has follow up with Dr. Andrews on . He states he is taking medications as prescribed. Musculoskeletal pain (chief complaint). Description: Location: right Hips bilat. The pain is aggravated by movement and walking. The pain is relieved by brace/splint and OTC medicines: ibuprofen. Associated symptoms include joint instability, limping and weakness. Additional information: Patient reports he was taking Meloxicam for osteoarthritis with good pain control prior to hospitalization. hand pain (chief complaint). Description: The problem is worsening. Location: right hand. The pain is sharp. Context: there is no injury. Associated symptoms include joint instability, joint tenderness, limping, spasms and weakness. Additional information: He reports pain and limited movement with decreased flexion to middle and fourth fingers of right hand and firm nodules on palm of hand. Reason For Referral Reason For Referral No Information Plan Of Treatment Date Type Action Status Goal Dental Exam. Due on due Goal Sigmoidoscopy. Due on due Goal Colonoscopy. Due on due Goal Td vaccine. Due on 19 due Goal Zoster vaccine. Due on due Goal Depression screening. Due on due Goal Lipid panel. Due on due Goal Zoster vaccine (1st). Due on due Goal FOBT. Due on due Goal Influenza vaccine. Due on due Goal Tdap. Due on due Goal Lifestyle education regardin g diet completed Referral Ordered: Referrals: Hand surgery. Evaluate and treat Appointment date/timeframe: 04/15/2019 ordered History Of Present Illness Encounter Date Complaint History Of Prese nt Illness hand pain The problem is w orsening. Location: right hand. The pain is sharp. Context: there is no injury. Associated symptoms include joint instability, joint tenderness, limping, spasms and weakness. Additional information: He reports pain and limited movement with decreased flexion to middle and fourth fingers of right hand and firm nodules on palm of hand. Heart disease He has been froylan ged with antiplatelet therapy and beta-ovi therapy. Associated symptoms include increased fatigue. Pertinent negatives include chest pain, chest pressure or discomfort, dyspnea, irregular heartbeat/palpitations and irritability. Additional information: Patient presents for hospital follow-up following STEMI with stent to mid-RCA. He has follow up with Dr. Andrews on . He states he is taking medications as prescribed. Musculoskeletal pain Location: r ight Hips bilat. The pain is aggravated by movement and walking. The pain is relieved by brace/splint and OTC medicines: ibuprofen. Associated symptoms include joint instability, limping and weakness. Additional information: Patient reports he was taking Meloxicam for osteoarthritis with good pain control prior to hospitalization. Musculoskeletal pain (comments) Patient reports he has had right total knee replacement. He reports he had multiple DVTs following this surgery. He states he is apprehensive about getting needed left total knee replacement and bilat hip replacements done due to this. Functional Status Date Functional Assessmen t No Information Instructions Date Instruction Additional Infor james Continue current man agementKeep appt with cardiology Related to Coronary artery disease with angina pectoris, unspecified vessel or lesion type, unspecified whether [place] or transplanted heart Will refer to hand s pecialist for further eval and treatment Related to Right hand pain Giving encouragement to exercise Related to Body mass index (BMI) 31.0-31.9, adult Lifestyle education regarding di et Related to Body mass index (BMI) 31.0-31.9, adult Assessments Type Assessment Date assessment Body mass index (BMI) 31.0-31.9, adult assessment Coronary artery dise ase with angina pectoris, unspecified vessel or lesion type, unspecified whether [place] or transplanted heart assessment Osteoarthritis of mu ltiple joints, unspecified osteoarthritis type assessment Right hand pain impression Stable Mental Status Date Cognitive Assessment Orientation - [place] ed to time, place, person, situation. Patient Care Teams Name Effective Dates (start - stop) Status Members No Information
--- OUTSIDE RECORDS SUMMARY | 2024-08-22 18:59 | XMS_ITS | Continuity of Care Document ---
Author Name [facility] Address [address] [place] [address] Organization [facility] Care Team Providers Care Supervisor Lending Activities Name Role Phone [facility] Unavailable Unavailable Problems Problem Status Onset Date Problem Type Date of Resolution Comments Source Suicidal thoughts (finding) 08/22/2024 Diagnosis Homicidal thoughts (finding) 08/22/2024 Diagnosis Opioid withdrawal (disorder) 08/22/2024 Diagnosis Severe protein-calorie malnutrition ([place]: less than 60% of standard weight) (disorder) 12/27/2023 Diagnosis Low back pain (disorder) 12/26/2023 Diagnosis Reduced mobility (finding) 12/26/2023 Diagnosis Pain (finding) 12/26/2023 Diagnosis Pain in lower limb (finding) 12/24/2023 Diagnosis At high risk for fall (finding) 12/24/2023 Diagnosis OTH Active Condition Diabetes mellitus (disorder) Active Condition Generalized osteoarthritis (disorder) Active Condition Added by discern rule CLIN_UH_PROB_A RTHRITIS from a nursing choronic problems assessment Powerform. Myocardial infarction (disorder) Active Condition Left against medical advice (finding) Diagnosis Gastroparesis (disorder) Diagnosis Lumbago with sciatica (disorder) Diagnosis Hyperglycemia due to type 2 diabetes mellitus (disorder) Diagnosis Lumbosacral stenosis (disorder) Diagnosis Artificial knee joint present (finding) Diagnosis Long-term current use of insulin (situation) Diagnosis Long-term current use of drug therapy (situation) Diagnosis Long-term current use of aspirin (situation) Diagnosis Chronic gastritis (disorder) Diagnosis Disease of stomach (disorder) Diagnosis Type II diabetes mellitus without complication (disorder) Diagnosis Acquired absence of organ Diagnosis Long-term current use of oral hypoglycemic medication Diagnosis History of percutaneous transluminal coronary angioplasty (situation) Diagnosis History of - cerebrovascular disease (context-dependent category) Diagnosis Procedure and treatment not carried out due to patient leaving prior to being seen by health care pr Active Diagnosis Unspecified abdominal pain Active Diagnosis Lumbago with sciatica, left side Active Diagnosis Suicidal ideations Active Diagnosis Derangement of Posterior Horn of Medial Meniscus Active Diagnosis Pain in Joint Involving Pelvic Region and Thigh Active Diagnosis Medications Medication Details Route Status Patient Instructions Ordering Provider Order Date Source Amlodipine 5 MG Oral Tablet 10 mg = 2 Tablet(s), Oral, Daily, # 60 Tablet(s), Refill(s) 0, Pharmacy: [facility], 187.9, cm, 12/28/23 15:41:00 CDT, Height (cm), kg, 12/26/23 14:40:00 CDT, Weight (kg), 88.[address] [facility] gabapentin 300 MG Oral Capsule 300 mg = 1 capsule(s), Oral, tid, # 90 capsule(s), Refill(s) 0, Pharmacy: [facility], 187.9, cm, 12/28/23 15:41:00 CDT, Height (cm), kg, 12/26/23 14:40:00 CDT, Weight (kg), 88.[address] [facility] One-A-Day Men 50 Plus oral tablet 1 Tablet(s), Oral, Daily Active 2023 [facility] Tamsulosin hydrochloride 0.4 MG Oral Capsule 0.4 mg = 1 capsule(s), Oral, Daily Active 2023 [facility] tizanidine 4 MG Oral Tablet 4 mg = 1 Tablet(s), Oral, q6h, Scheduled / PRN PRN as needed for muscle spasticity Active [address]23 [facility] 3 ML insulin glargine 100 UNT/ML Pen Injector [Lantus] 30 units, Subcutaneous , Daily Active 2023 [facility] omeprazole 40 MG Delayed Release Oral Capsule 40 mg = 1 capsule(s), Oral, Daily Active 2023 [facility] Hydrochlorothiazide 12.5 MG Oral Tablet 12.5 mg = 1 Tablet(s), Oral, Daily Active 2023 [facility] Metformin hydrochloride 1000 MG Oral Tablet 1,000 mg = 1 Tablet(s), Oral, bid Active [address]23 [facility] Glipizide 10 MG Oral Tablet 10 mg = 1 Tablet(s), Oral, bid Active [address]23 [facility] Allergies, Adverse Reactions, Alerts Substance Category Reaction Severity Reaction type Status Date Reported Comments Source NKA drug allergy Allergy Active [facility] Dilaudid Assertion Vomiting Drug allergy [facility] Results Order Name Results Value Reference Range Date Interpretation Comments Source GENERAL CHEMISTRY Glucose, Point of Care 195 mg/dL 70 - 110 08/22 19:53 :00 [facility] URINALYSIS UA LEUKOCYTES Negative /Hpf 08/22 18:23 :12 [facility] URINALYSIS UA NITRITE Negative *NA* (08/22/24 1:23 PM) 08/22 18:23 :12 [facility] URINALYSIS SPECIFIC GRAVITY 1.007 1.001 - 1.029 08/22 18:23 :12 [facility] URINALYSIS UA BLOOD Negative mg/dL 08/22 18:23 :12 Result Comment: A hemoglobin concentration of 0.015-0.062 mg/dL is approximately equivalent to 5 -20 intact red blood cells per microliter. [facility] URINALYSIS UA UROBILINOGEN <=1 mg/dL 08/22 18:23 :12 [facility] URINALYSIS UA PH 5.5 *NA* (08/22/24 1:23 PM) 5.0 - 8.0 08/22 18:23 :12 [facility] URINALYSIS UA PROTEIN Negative mg/dL 08/22 18:23 :12 [facility] URINALYSIS COLOR [place] ow *NA* (08/22/24 1:23 PM) 08/22 18:23 :12 [facility] URINALYSIS CLARITY Clear *NA* (08/22/24 1:23 PM) 08/22 18:23 :12 [facility] URINALYSIS UA KETONES Negative mg/dL 08/22 18:23 :12 [facility] URINALYSIS UA GLUCOSE 300 mg/dL 08/22 18:23 :12 [facility] URINALYSIS BILIRUBIN Negative mg/dL 08/22 18:23 :12 [facility] URINALYSIS RBC 0-5 /Hpf 0 - 5 08/22 18:23 :00 [facility] URINALYSIS UA Epithelial Cells 0-10 /lpf 0 - 10 08/22 18:23 :00 [facility] URINALYSIS WBC 0-5 /Hpf 0 - 5 08/22 18:23 :00 [facility] URINALYSIS UA Bacteria None /Hpf 08/22 18:23 :00 [facility] BLOOD GASES- RC HCO3 Venous (ABG) 31.2 mmol/L 08/22 16:46 :00 [facility] BLOOD GASES- Total CO2 (ABG) 32.9 mmol/L 23.0 - 29.0 08/22 16:46 :00 [facility] BLOOD GASES- RC Lactic Acid Venous 1.8 mmol/L 0.4 - 2.0 08/22 16:46 :00 [facility] BLOOD GASES- RC pO2 Venous (ABG) 24.0 mm[Hg] 08/22 16:46 :00 [facility] BLOOD GASES- RC pCO2 Venous (ABG) 54.0 mm[Hg] 38.0 - 50.0 08/22 16:46 :00 [facility] BLOOD GASES- pH Venous (ABG) 7.370 7.320 - 7.430 08/22 16:46 :00 [facility] BLOOD GASES- RC BE Venous (ABG) 4.5 mmol/L 08/22 16:46 :00 [facility] BLOOD GASES- RC Sample Site (ABG) Venous (08/22/24 11:46 AM) 08/22 16:46 :00 [facility] BLOOD GASES- RC Sample Type (ABG) Venous 08/22 16:46 :00 [facility] BLOOD GASES- RC Oxygen Sat Venous (ABG) 40.4 % 08/22 16:46 :00 [facility] GENERAL CHEMISTRY Total Protein 6.7 g/dL 5.7 - 8.2 08/22 16:46 :00 [facility] GENERAL CHEMISTRY Albumin 4.1 g/dL 3.2 - 4.8 08/22 16:46 :00 [facility] GENERAL CHEMISTRY BUN 11 mg/dL 9 - 23 08/22 16:46 :00 [facility] GENERAL CHEMISTRY Creatinine, standardized 0.85 mg/dL 0.70 - 1.30 08/22 16:46 :00 [facility] GENERAL CHEMISTRY Calcium 9.3 mg/dL 8.3 - 10.6 08/22 16:46 :00 [facility] GENERAL CHEMISTRY T Bili 0.56 mg/dL 0.20 - 1.20 08/22 16:46 :00 [facility] GENERAL CHEMISTRY Anion gap 8 mmol/L 5 - 15 08/22 16:46 :00 [facility] GENERAL CHEMISTRY GFR for >60 mL/min 08/22 16:46 :00 Interpretive Data: For all ethnicities, normal kidney function is indicated by a value of >60 mL/min/1.73 square meters in patents between 18 and 70 years of age. [facility] GENERAL CHEMISTRY Potassium 3.8 mmol/L 3.5 - 5.1 08/22 16:46 :00 [facility] GENERAL CHEMISTRY Sodium 139 mmol/L 136 - 145 08/22 16:46 :00 [facility] GENERAL CHEMISTRY Chloride 102.0 mmol/L 98.0 - 109.0 08/22 16:46 :00 [facility] GENERAL CHEMISTRY GFR non >60 mL/min 08/22 16:46 :00 Interpretive Data: The eGFR was estimated using the IDRI-traceabl e MDRD Study equation. National Kidney Foundation: K/DOQI clinical practice guidelines for chronic kidney disease: Evaluation, classificatio n and stratificatio n. Am J Kidney Dis 2002; 39(Suppl 1):S1. [facility] GENERAL CHEMISTRY CO2 30.0 mmol/L 20.0 - 31.0 08/22 16:46 :00 [facility] GENERAL CHEMISTRY Glucose Lvl 196 mg/dL 08/22 16:46 :00 Interpretive Data: No reference ranges have been established for random glucose levels. [facility] GENERAL CHEMISTRY AST-SGOT 30 U/L 0 - 34 08/22 16:46 :00 [facility] GENERAL CHEMISTRY ALT-SGPT 40 U/L 10 - 49 08/22 16:46 :00 [facility] GENERAL CHEMISTRY Alkaline Phosphatase 115.0 U/L 46.0 - 116.0 08/22 16:46 :00 [facility] GENERAL CHEMISTRY Magnesium 1.9 mg/dL 1.6 - 2.6 08/22 16:46 :00 [facility] GENERAL CHEMISTRY 3rd Generation TSH 0.542 mcunit/mL 0.550 - 4.780 08/22 16:46 :00 Interpretive Data: High doses of Biotin have been shown to interfere with this assay. If Biotin interference is suspected, please have patient discontinue Biotin for 24-48 hours and repeat test. [facility] GENERAL CHEMISTRY Free Thyroxine 1.30 ng/dL 0.89 - 1.76 08/22 16:46 :00 Interpretive Data: High doses of Biotin have been shown to interfere with this assay. If Biotin interference is suspected, please have patient discontinue Biotin for 24-48 hours and repeat test. [facility] HEMATOLOGY PROFILES MPV 10.0 fL 9.0 - 12.0 08/22 16:46 :00 [facility] HEMATOLOGY PROFILES PLT 302 x10(9)/L 135 - 400 08/22 16:46 :00 [facility] HEMATOLOGY PROFILES RDW CV 12.8 % 11.5 - 14.5 08/22 16:46 :00 [facility] HEMATOLOGY PROFILES MCHC 34.2 g/dL 30.4 - 36.7 08/22 16:46 :00 [facility] HEMATOLOGY PROFILES MCH 31.4 pg 28.0 - 33.0 08/22 16:46 :00 [facility] HEMATOLOGY PROFILES MCV 92.1 fL 80.0 - 95.0 08/22 16:46 :00 [facility] HEMATOLOGY PROFILES HCT 40.7 % 40.0 - 54.0 08/22 16:46 :00 [facility] HEMATOLOGY PROFILES HGB 13.9 g/dL 13.6 - 18.0 08/22 16:46 :00 [facility] HEMATOLOGY PROFILES RBC 4.42 x10(12)/L 4.35 - 5.80 08/22 16:46 :00 [facility] HEMATOLOGY PROFILES WBC 6.59 x10(9)/L 4.80 - 10.80 08/22 16:46 :00 [facility] HEMATOLOGY PROFILES % Basophils 0.6 % 08/22 16:46 :00 [facility] HEMATOLOGY PROFILES Abs Eosinophils 0.02 x10(9)/L 0.00 - 0.30 08/22 16:46 :00 [facility] HEMATOLOGY PROFILES % Eosinophils 0.3 % 08/22 16:46 :00 [facility] HEMATOLOGY PROFILES Abs Monocytes 0.31 x10(9)/L 0.00 - 1.00 08/22 16:46 :00 [facility] HEMATOLOGY PROFILES % Monocytes 4.7 % 08/22 16:46 :00 [facility] HEMATOLOGY PROFILES Abs Lymphocytes 1.02 x10(9)/L 1.20 - 3.40 08/22 16:46 :00 [facility] HEMATOLOGY PROFILES % Lymphocytes 15.5 % 08/22 16:46 :00 [facility] HEMATOLOGY PROFILES Abs Immature Granulocytes 0.01 x10(9)/L 0.00 - 0.03 08/22 16:46 :00 [facility] HEMATOLOGY PROFILES % Immature Granulocytes 0.2 % 08/22 16:46 :00 [facility] HEMATOLOGY PROFILES Absolute Granulocytes 5.19 x10(9)/L 1.40 - 6.50 08/22 16:46 :00 [facility] HEMATOLOGY PROFILES % Neutrophils 78.7 % 08/22 16:46 :00 [facility] HEMATOLOGY PROFILES Abs Basophils 0.04 x10(9)/L 0.00 - 0.10 08/22 16:46 :00 [facility] IMMUNOLOGY /VIROLOGY Influenza B Ag Negative *NA* (08/22/24 11:46 AM) 08/22 16:46 :00 [facility] IMMUNOLOGY /VIROLOGY Influenza A Ag Negative *NA* (08/22/24 11:46 AM) 08/22 16:46 :00 [facility] MISC CHEMISTRY Triiodothyro nine (T-3), Free 3.14 pg/mL 2.30 - 4.20 08/22 16:46 :00 Interpretive Data: High doses of Biotin have been shown to interfere with this assay. If Biotin interference is suspected, please have patient discontinue Biotin for 24-48 hours and repeat test. [facility] GENERAL CHEMISTRY Glucose, Point of Care 100 mg/dL 70 - 110 05/03 15:38 :00 [facility] GENERAL CHEMISTRY Glucose, Point of Care 67 mg/dL 70 - 110 05/03 14:32 :00 [facility] NM Cardiac - SPECT Perfusion Pharmacolo gical Stress NM Cardiac - SPECT Perfusion Pharmacologi alejandro Stress Nuc Med PET Accession # Exam Date/Time Procedure Ordering Provider [id number] 12/29/2023 13:18 CDT NM Cardiac - Perfusion José CONRAD, Javier Subhani Pharmal[address] Reason For Exam (NM Cardiac - Perfusion Pharmalogi [address] Str) sob with exertion Report EXAMINATIO N: Myocardial perfusion SPECT- Pharmacolo gic HISTORY: Shortness of breath with exertion. COMPARISON : None TECHNIQUE: Radiopharm aceutical for rest images: [id number] Myoview Dose: 11 mCi. Radiopharm aceutical for stress images: Myoview Dose: 35.8 mCi. For pharmacolo gic stress, the patient was given 0.4 mg of Regadenoso n (Lexiscan) I.V. over 10-20 seconds. The radiopharm aceutical was injected immediatel y after Regadenoso n injection. Patient's 12-lead EKG, BP, heart rate, SPO2, and clinical symptoms were monitored during the stress test. Stress test supervisio n: Resident and attending. Myocardial perfusion SPECT images were reconstruc effie in three dimensions . Left ventricula r functional assessment was performed from these images. Computer analysis of this data was done to calculate left ventricula r ejection fraction (LVEF), LV end-diasto lic volume (LVED) and to assess wall motion. Normal LVEF >50%. Rest images were taken prior to stress images. Attenuatio n correction was also performed. Per NCDR Registry: The study is classified as low, intermedia te or high risk based on the presence and severity of ischemia, LV dilatation and dysfunctio n (LVEF). FINDINGS: No fixed or reversible perfusion defects. LV EDV: 96 ml LVEF: 42% Wall Motion: Normal IMPRESSION : 1. Myocardial perfusion is normal. 2. LV function: Mildly decreased. 3. NCDR Risk: Low/interm ediate. I have personally reviewed the images and attest to the contents of Nuc Med PET Report this report. * * *Final Report* * * Electronic ally Signed by: Eloisa Damon MD Signed on: 12/29/23 14:38 12/28 10:17 :36 [facility] GENERAL CHEMISTRY AST-SGOT 29 U/L 12/27 17:21 :00 [facility] GENERAL CHEMISTRY Albumin 2.7 g/dL 3.4 - 5.0 12/27 17:21 :00 [facility] GENERAL CHEMISTRY Alkaline Phosphatase 43 U/L 40 - 129 12/27 17:21 :00 [facility] GENERAL CHEMISTRY ALT-SGPT 37 U/L 10 - 50 12/27 17:21 :00 [facility] CHEMISTRY BUN 11 mg/dL 8 - 23 12/27 17:21 :00 [facility] CHEMISTRY Calcium 7.3 mg/dL 8.3 - 10.6 12/27 17:21 :00 [facility] CHEMISTRY Glucose Lvl 121 mg/dL 70 - 139 12/27 17:21 :00 [facility] GENERAL CHEMISTRY Chloride 112 mmol/L 98 - 107 12/27 17:21 :00 [facility] GENERAL CHEMISTRY Sodium 143 mmol/L 136 - 145 12/27 17:21 :00 [facility] GENERAL CHEMISTRY Potassium HEMOLYZED, unable to report due to interferen ce mmol/L 3.5 - 5.1 12/27 17:21 :00 Result Comment: Hemolyzed Hemolyzed Sample.&X0D&& X0A&[facility] GENERAL CHEMISTRY CO2 25 mmol/L 20 - 31 12/27 17:21 :00 [facility] GENERAL CHEMISTRY Anion gap 10 mmol/L 0 - 20 12/27 17:21 :00 [facility] GENERAL CHEMISTRY T Bili 0.33 mg/dL 0.30 - 1.20 12/27 17:21 :00 [facility] CHEMISTRY Total Protein 5.4 g/dL 5.7 - 8.2 12/27 17:21 :00 [facility] CHEMISTRY Creatinine, standardized 0.7 mg/dL 0.7 - 1.2 12/27 17:21 :00 Interpretive Data: Aijjjp-kn-irg e transgender patients on testosterone therapy should have results assessed using the male reference range. Zkrc-mi-cyoyu e transgender patients on hormone-modul ating therapy clinical judgment is advisedfor assessment. [facility] GENERAL CHEMISTRY Estimated GFR for Adults 104 mL/min/1.7 3m 12/27 17:21 :00 Interpretive Data: Changed to CKD-EPI [address] [facility] GENERAL CHEMISTRY Estimated GFR for peds Not calculated 12/27 17:21 :00 Interpretive Data: The estimated GFR was calculated using the Susana reyes Escobedo equation (2009) . Reference: Pediatric GFR calculator at National Kidney Foundation Website. [facility] HEMATOLOGY PROFILES WBC 5.69 x10(9)/L 3.50 - 10.50 12/27 17:21 :00 [facility] HEMATOLOGY PROFILES RBC 3.81 x10(12)/L 4.32 - 5.72 12/27 17:21 :00 [facility] HEMATOLOGY PROFILES HGB 12.2 g/dL 13.5 - 17.5 12/27 17:21 :00 Interpretive Data: Sakhkb-rm-noc e transgender patients on testosterone therapy should have results assessed using the male reference range. Bsfb-zg-ybzgj e transgender patients on hormone-modul ating therapy clinical judgment is advisedfor assessment. [facility] HEMATOLOGY PROFILES HCT 35.3 % 38.8 - 50.0 12/27 17:21 :00 Interpretive Data: Njyzmx-ys-vfj e transgender patients on testosterone therapy should have results assessed using the male reference range. Ldek-km-ricjz e transgender patients on hormone-modul ating therapy clinical judgment is advisedfor assessment. [facility] HEMATOLOGY PROFILES MCV 92.7 fL 81.2 - 95.1 12/27 17:21 :00 [facility] HEMATOLOGY PROFILES MCH 32.0 pg 26.0 - 33.0 12/27 17:21 :00 [facility] HEMATOLOGY PROFILES MCHC 34.6 g/dL 32.0 - 36.0 12/27 17:21 :00 [facility] HEMATOLOGY PROFILES RDW CV 12.4 % 11.8 - 15.6 12/27 17:21 :00 [facility] HEMATOLOGY PROFILES RDW SD 42.3 fL 35.1 - 43.9 12/27 17:21 :00 [facility] HEMATOLOGY PROFILES PLT 226 x10(9)/L 150 - 450 12/27 17:21 :00 [facility] HEMATOLOGY PROFILES MPV 10.2 8.0 - 12.0 12/27 17:21 :00 [facility] HEMATOLOGY PROFILES % Nucleated RBCs 0.0 % 12/27 17:21 :00 [facility] HEMATOLOGY PROFILES Absolute Nucleated RBCs 0.0 x10(9)/L 0.0 - 0.0 12/27 17:21 :00 Interpretive Data: Normal values not established in patients less than [address] [facility] HEMATOLOGY PROFILES % Neutrophils 68.6 % 12/27 17:21 :00 [facility] HEMATOLOGY PROFILES % Lymphocytes 23.0 % 12/27 17:21 :00 [facility] HEMATOLOGY PROFILES % Monocytes 6.0 % 12/27 17:21 :00 [facility] HEMATOLOGY PROFILES % Eosinophils 1.1 % 12/27 17:21 :00 [facility] HEMATOLOGY PROFILES % Basophils 0.9 % 12/27 17:21 :00 [facility] HEMATOLOGY PROFILES % Immature Granulocytes 0.40 % 0.02 - 0.42 12/27 17:21 :00 [facility] HEMATOLOGY PROFILES Absolute Granulocytes 3.91 x10(9)/L 1.70 - 7.00 12/27 17:21 :00 [facility] HEMATOLOGY PROFILES Abs Lymphocytes 1.31 x10(9)/L 0.90 - 2.90 12/27 17:21 :00 [facility] HEMATOLOGY PROFILES Abs Monocytes 0.34 x10(9)/L 0.30 - 0.90 12/27 17:21 :00 [facility] HEMATOLOGY PROFILES Abs Eosinophils 0.06 x10(9)/L 0.05 - 0.50 12/27 17:21 :00 [facility] HEMATOLOGY PROFILES Abs Basophils 0.05 x10(9)/L 0.00 - 0.30 12/27 17:21 :00 [facility] HEMATOLOGY PROFILES Abs Immature Granulocytes 0.02 x10(9)/L 0.00 - 0.03 12/27 17:21 :00 [facility] MRI Pelvis MRI Pelvis MRI/MRA Accession # Exam Date/Time Procedure Ordering Provider [id number] 12/27/2023 05:12 CDT MRI Pelvis Javier Kumar MD Reason For Exam (MRI Pelvis) left leg pain , sciatica Report EXAMINATIO N: MRI pelvis without IV contrast INDICATION : left leg pain , sciatica COMPARISON : 12/27/2023 MRI lumbar spine, 12/26/2023 lumbosacra l spine radiograph TECHNIQUE: Multiplana r, multi-sequ ence MRI examinatio n of the abdomen was performed. FINDINGS: HIPS: There is no fracture. Mild left hip osteoarthr itis and degenerati ve acetabular fracture on small field-of-v iew images. SI JOINTS and PUBIC SYMPHYSIS mild bilateral sacroiliac osteoarthr itis left greater than right. The pubic symphysis is normal in appearance . BONE MARROW: There is no fracture. Heterogene ous though otherwise normal intrinsic bone marrow signal. No marrow replacing lesions. No findings to suggest osteomyeli tis. MUSCLES, TENDONS, BURSAE: The hamstring tendons are intact with normal intrinsic signal. The iliopsoas tendons are intact with normal intrinsic signal. The gluteal muscles are normal in bulk. Mild edema at the left gluteus medius insertion upon the greater trochanter (series 7#[id number]). LUMBAR SPINE: Please see same day separately dictated MRI of the lumbar spine for detailed findings of the lumbar spine OTHER: The sciatic nerves are intact with normal intrinsic signal. Normal appearance of the iliac and femoral vessels. No pelvic free fluid. Normal caliber abdominal aorta. The urinary bladder is well distended. No pathologic ally enlarged pelvic lymph nodes. IMPRESSION : 1. Mild left gluteus medias tendinopat hy. 2. Mild osteoarthr itis. 3. No abnormalit y of the sacral plexus see dictated report of spine MRI. I have personally reviewed the images and attest to the contents of MRI/MRA Report this report. * * *Final Report* * * Electronic ally Signed by: Saurav CONRAD, Matty Kapadia Signed on: 12/28/23 11:25 12/26 03:33 :59 [facility] MRI Spine Lumbar MRI Spine Lumbar MRI/MRA Accession # Exam Date/Time Procedure Ordering Provider [id number] 12/27/2023 05:12 CDT MRI Spine Lumbar Javier Kumar MD Reason For Exam (MRI Spine Lumbar) left leg pain , sciatica , ruling out cord compressio n Report EXAMINATIO N: MRI Spine Lumbar INDICATION : left leg pain , sciatica , ruling out cord compressio n COMPARISON : February 13: FINDINGS: Posterior stabilizat ion of L3-L4 on the left is identified without complicati on identified . Mild degenerati ve changes of the SI joints. No paraverteb ral abnormalit y.. The conus terminates at L1. L1-L2: No canal or foraminal narrowing. L2-L3: No canal or foraminal narrowing. L3-L4: Slight narrowing of the central canal. Mild to moderate bilateral foraminal narrowing is present. L4-L5: Small disc bulge with mild facet disease produces mild to moderate central canal stenosis. Mild bilateral foraminal narrowing is present.. L5-S1: Small disc bulge with slight encroachme nt upon the thecal sac and S1 nerve roots. Mild bilateral foraminal narrowing is present.. IMPRESSION : Degenerati ve disc changes in the lower lumbar spine with mild to moderate central canal stenosis most severe at L4-L5. Mild to moderate bilateral foraminal narrowing in the lower lumbar spine. I have personally reviewed the images and attest to the contents of this report. * * *Final Report* * * Electronic ally Signed by: Saurav CONRAD, Matty Kapadia Signed on: 12/27/23 11:48 12/26 03:33 :59 [facility] XR Spine Lumbosacra l XR Spine Lumbosacral XR General Diagnostic Accession # Exam Date/Time Procedure Ordering Provider [id number] 12/26/2023 10:47 CDT XR Spine Lumbosacra l Javier Kumar MD Reason For Exam (XR Spine Lumbosacra l) back pain Report EXAMINATIO N: XR Spine Lumbosacra l INDICATION : back pain VIEWS: 2 COMPARISON : None FINDINGS: No fracture. Posterior decompress ion and fusion of L3-L4 with left-sided transpedic ular screws and interbody spacer. No hardware complicati on. Anterior ossificati ons above the fusion level of multiple vertebral bodies. Mild degenerati ve disc L5-S1. IMPRESSION : Mature fusion of L3-L4. Degenerati ve disc L5-S1. I have personally reviewed the images and attest to the contents of this report. * * *Final Report* * * Electronic ally Signed by: Jose Perez MD Signed on: 12/26/23 10:56 12/25 10:36 :42 [facility] URINALYSIS Urine Collection Method Clean Catch UR (12/26/23 5:11 AM) 12/25 10:11 :00 [facility] URINALYSIS CLARITY Clear (12/26/23 5:11 AM) 12/25 10:11 :00 [facility] URINALYSIS COLOR Grisel *ABNORMAL* (12/26/23 5:11 AM) 12/25 10:11 :00 [facility] URINALYSIS SPECIFIC GRAVITY 1.030 1.006 - 1.030 12/25 10:11 :00 [facility] URINALYSIS UA PH 5 (12/26/23 5:11 AM) 4.5 - 8.0 12/25 10:11 :00 [facility] URINALYSIS UA GLUCOSE 50 mg/dL 12/25 10:11 :00 [facility] URINALYSIS UA KETONES Negative mg/dL 12/25 10:11 :00 [facility] URINALYSIS BILIRUBIN Negative (12/26/23 5:11 AM) 12/25 10:11 :00 [facility] URINALYSIS UA UROBILINOGEN 2.0 Britney unit/dL 0.2 - 1.0 12/25 10:11 :00 [facility] URINALYSIS UA BLOOD Negative 11 (12/26/23 5:11 AM) 12/25 10:11 :00 Result Comment: A hemoglobin concentration of 0.015-0.062 mg/dL is approximately equivalent to 5 -20 intact red blood cells per microliter. [facility] URINALYSIS UA LEUKOCYTES Negative (12/26/23 5:11 AM) 12/25 10:11 :00 [facility] URINALYSIS UA NITRITE Negative (12/26/23 5:11 AM) 12/25 10:11 :00 [facility] URINALYSIS UA PROTEIN Negative mg/dL 12/25 10:11 :00 [facility] Gastrointe stinal Exam [place] Gastrointest inal Exam [facility] PET Accession # Exam Date/Time Procedure Ordering Provider [id number] 12/25/2023 17:10 CDT [place] Gastro-Int estinal Javier Kumar MD Reason For Exam (MO Gastro-Int estinal) early satiety , poor controlled dm , egd normal Report EXAMINATIO N: Gastric Emptying with 4-Hour Protocol HISTORY: Concern for gastropare sis. N/V. TECHNIQUE: Radiopharm aceutical: Tc-99m-Sul fur Colloid or Tc-99m MAA. Dose in mCi: 2 The meal consisted of two eggs, two toasts, two strawberry jam, and 120 ml of water. Normal values for the meal used are based on 4-hour protocol published in Gastroente rology 2008. Following ingestion of the radiolabel ed meal, patient underwent serial images of stomach. The images were acquired in the anterior and posterior projection s. Using mean geometric counts from the gastric region of interest, the gastric emptying half time (GEHT) was determined . The duration of imaging study was 4 hours. A 50-70% or more emptying at one hour may represent rapid gastric emptying. FINDINGS: The percent gastric emptying at 30 minutes is: 5 The percent gastric emptying at 1hour: 11 (Normal >10%) The percent gastric emptying at 2 hour: 40 (Normal >40%) The percent gastric emptying at 3hour: 59 (Normal >70%) The percent gastric emptying at 4 hour: 82 (Normal >90%) IMPRESSION : The gastric emptying is slightly delayed consistent with mild gastropare sis.. I have personally reviewed the images and attest to the contents of this report. * * *Final Report* * * Electronic ally Signed by: Heather Wright MD Signed on: 12/25/23 18:50 12/24 13:00 :00 [facility] GENERAL CHEMISTRY AST-SGOT 24 U/L 12/24 06:25 :00 [facility] GENERAL CHEMISTRY Albumin 3.8 g/dL 3.4 - 5.0 12/24 06:25 :00 [facility] GENERAL CHEMISTRY Alkaline Phosphatase 55 U/L 40 - 129 12/24 06:25 :00 [facility] GENERAL CHEMISTRY ALT-SGPT 47 U/L 10 - 50 12/24 06:25 :00 [facility] GENERAL CHEMISTRY BUN 14 mg/dL 8 - 23 12/24 06:25 :00 [facility] GENERAL CHEMISTRY Calcium 9.8 mg/dL 8.3 - 10.6 12/24 06:25 :00 [facility] GENERAL CHEMISTRY Glucose Lvl 145 mg/dL 70 - 139 12/24 06:25 :00 [facility] GENERAL CHEMISTRY Chloride 101 mmol/L 98 - 107 12/24 06:25 :00 [facility] GENERAL CHEMISTRY Sodium 135 mmol/L 136 - 145 12/24 06:25 :00 [facility] GENERAL CHEMISTRY Potassium 3.5 mmol/L 3.5 - 5.1 12/24 06:25 :00 [facility] GENERAL CHEMISTRY CO2 25 mmol/L 20 - 31 12/24 06:25 :00 [facility] GENERAL CHEMISTRY Anion gap 12 mmol/L 0 - 20 12/24 06:25 :00 [facility] GENERAL CHEMISTRY T Bili 0.83 mg/dL 0.30 - 1.20 12/24 06:25 :00 [facility] GENERAL CHEMISTRY Total Protein 6.9 g/dL 5.7 - 8.2 12/24 06:25 :00 [facility] GENERAL CHEMISTRY Creatinine, standardized 0.8 mg/dL 0.7 - 1.2 12/24 06:25 :00 Interpretive Data: Udavvk-sw-yyz e transgender patients on testosterone therapy should have results assessed using the male reference range. Obbh-ae-vwtdo e transgender patients on hormone-modul ating therapy clinical judgment is advisedfor assessment. [facility] CHEMISTRY Estimated GFR for Adults 99 mL/min/1.7 3m 12/24 06:25 :00 Interpretive Data: Changed to CKD-EPI 2020 on 2020. [facility] CHEMISTRY Estimated GFR for peds Not calculated 12/24 06:25 :00 Interpretive Data: The estimated GFR was calculated using the Susana reyes Escobedo equation (2009) . Reference: Pediatric GFR calculator at National Kidney Foundation Website. [facility] GENERAL CHEMISTRY Prostate Specific Antigen 0.60 ng/mL 12/24 06:25 :00 [facility] HEMATOLOGY PROFILES WBC 7.02 x10(9)/L 3.50 - 10.50 12/24 06:25 :00 [facility] HEMATOLOGY PROFILES RBC 4.93 x10(12)/L 4.32 - 5.72 12/24 06:25 :00 [facility] HEMATOLOGY PROFILES HGB 15.1 g/dL 13.5 - 17.5 12/24 06:25 :00 Interpretive Data: Kzoyep-fo-tuc e transgender patients on testosterone therapy should have results assessed using the male reference range. Krdx-of-mlwor e transgender patients on hormone-modul ating therapy clinical judgment is advisedfor assessment. [facility] HEMATOLOGY PROFILES HCT 42.9 % 38.8 - 50.0 12/24 06:25 :00 Interpretive Data: Kronal-jl-ktv e transgender patients on testosterone therapy should have results assessed using the male reference range. Shqw-gq-aemjz e transgender patients on hormone-modul ating therapy clinical judgment is advisedfor assessment. [facility] HEMATOLOGY PROFILES MCV 87.0 fL 81.2 - 95.1 12/24 06:25 :00 [facility] HEMATOLOGY PROFILES MCH 30.6 pg 26.0 - 33.0 12/24 06:25 :00 [facility] HEMATOLOGY PROFILES MCHC 35.2 g/dL 32.0 - 36.0 12/24 06:25 :00 [facility] HEMATOLOGY PROFILES RDW CV 12.4 % 11.8 - 15.6 12/24 06:25 :00 [facility] HEMATOLOGY PROFILES RDW SD 39.8 fL 35.1 - 43.9 12/24 06:25 :00 [facility] HEMATOLOGY PROFILES PLT 308 x10(9)/L 150 - 450 12/24 06:25 :00 [facility] HEMATOLOGY PROFILES MPV 10.1 8.0 - 12.0 12/24 06:25 :00 [facility] HEMATOLOGY PROFILES % Nucleated RBCs 0.0 % 12/24 06:25 :00 [facility] HEMATOLOGY PROFILES Absolute Nucleated RBCs 0.0 x10(9)/L 0.0 - 0.0 12/24 06:25 :00 Interpretive Data: Normal values not established in patients less than [address] [facility] HEMATOLOGY PROFILES % Neutrophils 59.9 % 12/24 06:25 :00 [facility] HEMATOLOGY PROFILES % Lymphocytes 30.6 % 12/24 06:25 :00 [facility] HEMATOLOGY PROFILES % Monocytes 7.7 % 12/24 06:25 :00 [facility] HEMATOLOGY PROFILES % Eosinophils 0.7 % 12/24 06:25 :00 [facility] HEMATOLOGY PROFILES % Basophils 0.7 % 12/24 06:25 :00 [facility] HEMATOLOGY PROFILES % Immature Granulocytes 0.40 % 0.02 - 0.42 12/24 06:25 :00 [facility] HEMATOLOGY PROFILES Absolute Granulocytes 4.20 x10(9)/L 1.70 - 7.00 12/24 06:25 :00 [facility] HEMATOLOGY PROFILES Abs Lymphocytes 2.15 x10(9)/L 0.90 - 2.90 12/24 06:25 :00 [facility] HEMATOLOGY PROFILES Abs Monocytes 0.54 x10(9)/L 0.30 - 0.90 12/24 06:25 :00 [facility] HEMATOLOGY PROFILES Abs Eosinophils 0.05 x10(9)/L 0.05 - 0.50 12/24 06:25 :00 [facility] HEMATOLOGY PROFILES Abs Basophils 0.05 x10(9)/L 0.00 - 0.30 12/24 06:25 :00 [facility] HEMATOLOGY PROFILES Abs Immature Granulocytes 0.03 x10(9)/L 0.00 - 0.03 12/24 06:25 :00 [facility] CHEMISTRY Hemoglobin A1c 5.9 % 4.0 - 5.6 12/24 06:25 :00 Interpretive Data: Interpretativ e Information: Hemoglobin A1C (HbA1c) Comment Tab: [place] Diabetes Association criteria: 5.6% Normal 5.7 to 6.4 % Prediabetes 6.5% Diabetes Repeat hemoglobin A1c testing or follow-up with an alternative test such as the 2-hour OGTT is required prior to the diagnosis of diabetes. Prediabetes: Patient counseling and commitment to a course of lifestyle modification is recommended with follow-up testing 3-6 months later. Diabetes mellitus: HbA1c correlates highly with average daily glycemia over the preceding 60-90 day period. While g ood control is generally considered to be HbA1c < 7.0%, individual factors influence HbA1c goals and attained results, which providers should take into account when using HbA1c in patient management and counseling. In particular, HbA1c does not reliably capture frequency and severity of treatment-rel ated hypoglycemia, which may obligate relaxation of HbA1c goals for the patient. Note: Any condition that shortens erythrocyte survival or decreases mean erythrocyte age will lower HbA1c results regardless of the assay method. HbA1c results after blood transfusion should be interpreted with caution. REFERENCES: The Diabetes Control and Complications Trial Research Group: The effect of intensive treatment of diabetes on the development and progression of long-term complications in insulin-depen dent diabetes mellitus. N Engl J Med 329:977-86, 1992 National Glycohemoglob in Standardizati on Program (NGSP) website: http://www.ng sp.org [facility] CHEMISTRY Estimated Average Glucose 123 mg/dL 12/24 06:25 :00 Interpretive Data: Interpretativ e Information: Estimated Average Glucose (eAG) Comment Tab: The table below shows the relationship between HbA1c and estimated average glucose (eAG). These data are presented only as a general guide for patient education. HbA1c (%) eAG (mg/dL) 4 70 5 97 6 126 7 154 8 183 9 212 10 240 11 269 12 298 Formula: eAG = 28.7 x HbA1c 46.7 REFERENCE: Stephen WEBB et al: Translating the A1c Assay into Estimated Average Glucose Values. Diabetes Care 31:1473-8, 2008 [facility] US Scrotum US Scrotum Ultrasound Accession # Exam Date/Time Procedure Ordering Provider [id number] 12/24/2023 19:17 CDT US Scrotum José CONRAD, Javier Ferro Reason For Exam (US Scrotum) testicular pain Report EXAMINATIO N: Scrotum ultrasound INDICATION : testicular pain COMPARISON : None TECHNIQUE: Grayscale, color and spectral Doppler evaluation of the scrotum was performed. FINDINGS: RIGHT: Testicular Size: Length: 4.8 cm Width: 2.2 cm height: 1.9 cm Testicle: Homogeneou s echotextur e without any focal masses or lesions. Normal flow. Multiple micro echogenici ties, likely benign micro calcificat ions. Epididymis : Unremarkab le Other: Trace right hydrocele. LEFT: Testicular Size: Length: 3.6 cm Width: 2.7 cm Height: 1.8 cm Testicle: Homogeneou s echotextur e without any focal masses or lesions. Normal flow. Epididymis : Multiple benign-atiya earing epididymal simple appearing cysts measuring up to 8 mm. Otherwise unremarkab le. Other: Trace hydrocele. IMPRESSION : Trace bilateral hydroceles . No additional acute abnormalit ies. I have personally reviewed the images and attest to the contents of this report. * * *Final Report* * * Electronic ally Signed by: Penny CONRAD, Neo Escobar Signed on: 12/24/23 20:02 12/23 18:36 :35 [facility] SITE LAB RESULTS Influenza A Rapid POC Negative *NA* (12/24/23 10:38 AM) 12/23 15:38 :00 [facility] LAB RESULTS Influenza B Rapid POC Negative *NA* (12/24/23 10:38 AM) 12/23 15:38 :00 [facility] XR Knee Left XR Knee Left XR General Diagnostic Accession # Exam Date/Time Procedure Ordering Provider [id number] 12/24/2023 15:57 CDT XR Knee Left Priya Hough MD Reason For Exam (XR Knee Left) Can't walk or bear weight due to tenderness 3 weeks Report EXAMINATIO N: XR Tibia/Fibu la Left, XR Knee Left INDICATION : Can't walk or bear weight due to tenderness 3 weeks VIEWS: Tibia fibula 2 views and knee 2 views COMPARISON : None FINDINGS: No fracture. Mild knee osteoarthr itis. Vascular calcificat ions. IMPRESSION : No acute osseous abnormalit y. I have personally reviewed the images and attest to the contents of this report. * * *Final Report* * * Electronic ally Signed by: Jose Perez MD Signed on: 12/24/23 16:02 12/23 15:20 :41 [facility] XR Tibia/Fibu la Left XR Tibia/Fibula Left XR General Diagnostic Accession # Exam Date/Time Procedure Ordering Provider [id number] 12/24/2023 15:57 CDT XR Tibia/Fibu la Left Priya Hough MD Reason For Exam (XR Tibia/Fibu la Left) Can't walk or bear weight due to tenderness 3 weeks Report EXAMINATIO N: XR Tibia/Fibu la Left, XR Knee Left INDICATION : Can't walk or bear weight due to tenderness 3 weeks VIEWS: Tibia fibula 2 views and knee 2 views COMPARISON : None FINDINGS: No fracture. Mild knee osteoarthr itis. Vascular calcificat ions. IMPRESSION : No acute osseous abnormalit y. I have personally reviewed the images and attest to the contents of this report. * * *Final Report* * * Electronic ally Signed by: Jose Perez MD Signed on: 12/24/23 16:02 12/23 15:20 :41 [facility] GENERAL CHEMISTRY AST-SGOT 32 U/L 12/23 14:28 :00 [facility] GENERAL CHEMISTRY Albumin 4.1 g/dL 3.4 - 5.0 12/23 14:28 :00 [facility] GENERAL CHEMISTRY Alkaline Phosphatase 60 U/L 40 - 129 12/23 14:28 :00 [facility] GENERAL CHEMISTRY ALT-SGPT 50 U/L 10 - 50 12/23 14:28 :00 [facility] GENERAL CHEMISTRY BUN 13 mg/dL 8 - 23 12/23 14:28 :00 [facility] GENERAL CHEMISTRY Calcium 10.0 mg/dL 8.3 - 10.6 12/23 14:28 :00 [facility] GENERAL CHEMISTRY Glucose Lvl 170 mg/dL 70 - 139 12/23 14:28 :00 [facility] GENERAL CHEMISTRY Chloride 100 mmol/L 98 - 107 12/23 14:28 :00 [facility] GENERAL CHEMISTRY Sodium 136 mmol/L 136 - 145 12/23 14:28 :00 [facility] GENERAL CHEMISTRY Potassium 4.4 mmol/L 3.5 - 5.1 12/23 14:28 :00 [facility] GENERAL CHEMISTRY CO2 28 mmol/L 20 - 31 12/23 14:28 :00 [facility] CHEMISTRY Anion gap 13 mmol/L 0 - 20 12/23 14:28 :00 [facility] GENERAL CHEMISTRY T Bili 1.15 mg/dL 0.30 - 1.20 12/23 14:28 :00 [facility] GENERAL CHEMISTRY Total Protein 7.6 g/dL 5.7 - 8.2 12/23 14:28 :00 [facility] CHEMISTRY Creatinine, standardized 0.8 mg/dL 0.7 - 1.2 12/23 14:28 :00 Interpretive Data: Fxurdc-dq-xfx e transgender patients on testosterone therapy should have results assessed using the male reference range. Mkmn-su-gunco e transgender patients on hormone-modul ating therapy clinical judgment is advisedfor assessment. [facility] GENERAL CHEMISTRY Estimated GFR for Adults 96 mL/min/1.7 3m 12/23 14:28 :00 Interpretive Data: Changed to CKD-EPI [address] [facility] GENERAL CHEMISTRY Estimated GFR for peds Not calculated 12/23 14:28 :00 Interpretive Data: The estimated GFR was calculated using the B amy Escobedo equation (2009) . Reference: Pediatric GFR calculator at National Kidney Foundation Website. [facility] GENERAL CHEMISTRY Magnesium 1.53 mg/dL 1.60 - 2.60 12/23 14:28 :00 [facility] HEMATOLOGY PROFILES WBC 8.30 x10(9)/L 3.50 - 10.50 12/23 14:28 : [facility] HEMATOLOGY PROFILES RBC 5.13 x10(12)/L 4.32 - 5.72 12/23 14:28 :00 [facility] HEMATOLOGY PROFILES HGB 16.0 g/dL 13.5 - 17.5 12/23 14:28 :00 Interpretive Data: Igthkv-in-jxg e transgender patients on testosterone therapy should have results assessed using the male reference range. Jglb-le-qdbhw e transgender patients on hormone-modul ating therapy clinical judgment is advisedfor assessment. [facility] HEMATOLOGY PROFILES HCT 45.1 % 38.8 - 50.0 12/23 14:28 :00 Interpretive Data: Eefoxw-df-xus e transgender patients on testosterone therapy should have results assessed using the male reference range. Ywuf-sx-gwkiv e transgender patients on hormone-modul ating therapy clinical judgment is advisedfor assessment. [facility] HEMATOLOGY PROFILES MCV 87.9 fL 81.2 - 95.1 12/23 14:28 : [facility] HEMATOLOGY PROFILES MCH 31.2 pg 26.0 - 33.0 12/23 14:28 : [facility] HEMATOLOGY PROFILES MCHC 35.5 g/dL 32.0 - 36.0 12/23 14:28 : [facility] HEMATOLOGY PROFILES RDW CV 12.4 % 11.8 - 15.6 12/23 14:28 :00 [facility] HEMATOLOGY PROFILES RDW SD 40.0 fL 35.1 - 43.9 12/23 14:28 : [facility] HEMATOLOGY PROFILES PLT 341 x10(9)/L 150 - 450 12/23 14:28 :00 [facility] HEMATOLOGY PROFILES MPV 10.6 8.0 - 12.0 12/23 14:28 : [facility] HEMATOLOGY PROFILES % Nucleated RBCs 0.0 % 12/23 14:28 :00 [facility] HEMATOLOGY PROFILES Absolute Nucleated RBCs 0.0 x10(9)/L 0.0 - 0.0 12/23 14:28 :00 Interpretive Data: Normal values not established in patients less than [address] [facility] HEMATOLOGY PROFILES % Neutrophils 73.8 % 12/23 14:28 :00 [facility] HEMATOLOGY PROFILES % Lymphocytes 18.1 % 12/23 14:28 : [facility] HEMATOLOGY PROFILES % Monocytes 6.7 % 12/23 14:28 : [facility] HEMATOLOGY PROFILES % Eosinophils 0.5 % 12/23 14:28 : [facility] HEMATOLOGY PROFILES % Basophils 0.5 % 12/23 14:28 : [facility] HEMATOLOGY PROFILES % Immature Granulocytes 0.40 % 0.02 - 0.42 12/23 14:28 :00 [facility] HEMATOLOGY PROFILES Absolute Granulocytes 6.13 x10(9)/L 1.70 - 7.00 12/23 14:28 :00 [facility] HEMATOLOGY PROFILES Abs Lymphocytes 1.50 x10(9)/L 0.90 - 2.90 12/23 14:28 : [facility] HEMATOLOGY PROFILES Abs Monocytes 0.56 x10(9)/L 0.30 - 0.90 12/23 14:28 :00 [facility] HEMATOLOGY PROFILES Abs Eosinophils 0.04 x10(9)/L 0.05 - 0.50 12/23 14:28 :00 [facility] HEMATOLOGY PROFILES Abs Basophils 0.04 x10(9)/L 0.00 - 0.30 12/23 14:28 :00 [facility] HEMATOLOGY PROFILES Abs Immature Granulocytes 0.03 x10(9)/L 0.00 - 0.03 12/23 14:28 :00 [facility] IMMUNOLOGY /VIROLOGY CRP <0.4 mg/dL 12/23 14:28 :00 [facility] OTHER HEMATOLOGY TESTS ESR 20.0 mm/Hr 0.0 - 20.0 12/23 14:28 :00 [facility] CT Abdomen(wi th or without Pelvis) CT Abdomen(with or without Pelvis) CT Scan/CT Angio Accession # Exam Date/Time Procedure Ordering Provider [id number] 12/24/2023 14:[address] Abdomen(wi th or Priya Hough MD without Pelvis) Reason For Exam (CT Abdomen(wi th or without Pelvis)) Left flank pain Report EXAMINATIO N: CT Abdomen and pelvis with IV contrast. TECHNIQUE: CT images were acquired through the abdomen and pelvis. Sagittal and coronal reformatte d series were provided. Oral contrast was not administer ed. INDICATION : Left flank pain COMPARISON : CT chest 06/12/2013 FINDINGS: Presence of motion artifact has decreased sensitivit y of this exam for subtle findings. Lower Chest: Unremarkab le. Liver: Normal size and configurat ion. No suspicious lesions. Gallbladde r/Biliary: Cholecyste ctomy. Mild biliary ductal dilatation , nonspecifi c in the setting of cholecyste ctomy. Pancreas: Atrophic. The main pancreatic duct is nondilated . Spleen: Unremarkab le. Adrenal Glands: Unremarkab le. Kidneys: Bilateral nonspecifi c perinephri c fat stranding. Mild bilateral cortical thinning and scarring. No nephrolith iasis. No hydronephr osis. No suspicious renal lesions. Bowel: Nonspecifi c diffuse proximal gastric wall thickening . No evidence of bowel obstructio n. The appendix is unremarkab le. Moderate colonic stool volume. Colonic diverticul osis without acute diverticul itis. Urinary Bladder: Unremarkab le. Reproducti ve Organs: Borderline enlarged prostate. Lymph Nodes: No pathologic ally enlarged lymph nodes. Vessels: No aortic aneurysm. Moderate atheroscle rotic calcificat ions. Accessory right renal artery. Others: No ascites or pneumoperi toneum. Body Wall: Tiny fat-contai shamir umbilical hernia. Bones: No acute or suspicious osseous abnormalit y. Diffuse idiopathic skeletal hyperostos is of the thoracolum bar spine. Postsurgic al changes of L3-L4 left transpedic ular screw fixation with L3-L4 interbody device. IMPRESSION : 1. No acute abnormalit y identified in the abdominal pelvis. No or nephrolith iasis or hydronephr osis. 2. Nonspecifi c diffuse proximal gastric wall thickening , partly exaggerate d due to under distention . Recommend nonemergen t endoscopy correlatio n if clinically indicated. 3. Additional chronic/in cidental findings as documented above. I have personally reviewed the images and attest to the contents of CT Scan/CT Angio Report this report. * * *Final Report* * * Electronic ally Signed by: Bernardo CONRAD, Samra Raymundo Signed on: 12/24/23 15:23 12/23 13:43 :34 [facility] XR Chest XR Chest XR General Diagnostic Accession # Exam Date/Time Procedure Ordering Provider [id number] 12/24/2023 11:28 CDT XR Chest Priya Hough MD Reason For Exam (XR Chest) SHortness of breath Report EXAMINATIO N: XR Chest INDICATION : SHortness of breath VIEWS: 2 COMPARISON : None FINDINGS: Normal cardiomedi astinal silhouette . No focal parenchyma l process. No pleural effusions. No pneumothor ax. No acute osseous abnormalit ies. IMPRESSION : No acute cardiopulm onary findings. I have personally reviewed the images and attest to the contents of this report. * * *Final Report* * * Electronic ally Signed by: Aime CONRAD, Elias Mcqueen Signed on: 12/24/23 11:56 12/23 10:54 :10 [facility] Consultation Notes Results Value Date Source Emergency Services Note Basic Informatio n Chief Complaint To ED from home d/t opioid addiction/withdrawal. Last opioid at 0200 today. SI with plan of OD and HI w/o plan. History of Present Illness This is a 63-year-old male with past medical history of diabetes, previous HI, osteoarthritis who presents to emergency department with chief complaint of suicidal ideation with plan to overdose on pain medication as well as passive homicidal ideation against his . Last year patient was placed on Percocet 10 325 mg to take by mouth every 4 hours. Patient states that he also wakes up to take these in the middle of the night. States that he was taking these pain medications for chronic right hip pain. States 6 weeks ago he had his hip replaced. States that his hip is no longer in pain however he found that he was dependent upon the medication. He met with his PCP in order to attempt to wean himself off the medication. Was giving taper schedule however he was unable to complete the schedule. Patient states that he now feels hopeless, helpless and is having increased suicidal ideation that have now become a plan to overdose on pain medication. Patient states that he does not feel safe at home. He denies any previous history of addiction or suicidal ideation. Review of Systems Constitutional: No fever. No chills. Skin: No rashes or lesions. Eye: No visual problems ENT: No ear pain, sore throat, or nasal congestion. Resp: No cough. No SOA. No wheezing. CV: No chest pain. GI: No abdominal pain. No N/V/D. : No dysuria or hematuria. MSK: No back pain. Neuro: No headache. No numbness/tingling/weakness. Psych: SI/HI All other systems reviewed and are otherwise negative. ROS reviewed as documented in chart. Physical Exam Vitals and Measurements T: 35.9 C HR: 85 RR: 20 BP: 145/85 SpO2: 98% WT: 74.3 kg General: Awake, alert and oriented. Appears stated age Skin: Appropriate color. Head: Normocephalic and atraumatic Eyes: Conjunctiva are clear without exudates or hemorrhage. Ears: External ear and ear canal are nontender and without swelling. Cardiac: External chest is normal in appearance without lives, heaves or thrills. Respiratory: Chest symmetric and without deformity. No signs of trauma.No signs of respiratory distress. Abdominal: Abdomen is soft, symmetric and nontender without distention. Bowel sounds are present and normoactive. Extremities: No swelling Neurologic: Patient is awake alert and orientated. Psychiatric: Suicidal ideation with plan. Passive homicidal thoughts. Anxious Procedure Medical Decision Making Emergency department attending on shift: This is a 63-year-old male with past medical history of diabetes, previous HI, osteoarthritis who presents to emergency department with chief complaint of suicidal ideation with plan to overdose on pain medication as well as passive homicidal ideation against his . EKG at bedside reveals normal sinus rhythm ventricular rate of 76 bpm. QTc of 423. No ST elevation or depression per my read. Laboratory analysis is reassuring and unremarkable. Electrolytes within normal limits. Renal function is stable. TSH is low, however normal free thyroxine. Venous blood gas is stable. COVID influenza are negative. Urinalysis reveals no evidence of urinary tract infection. Urine drug screen is positive for oxycodone and opiates. Patient did become very anxious while in emergency department. Requested something for his anxiety. He was given hydroxyzine. However, after 30 minutes he states that it was worsening. Patient was given 1 mg Ativan as well as 5 mg oral with peroxide. Patient is requesting admission to psychiatric hospital. I did reach out to [facility] to discuss patient case, unfortunately they are on bed hold. Patient fortunately was excepted by Dr.Hayreh. Was transferred to the [facility] unit by EMS without complication. Discussed with patient who is in agreement. As patient is high risk affidavits were filed, however patient remained voluntary Reexamination/Reevaluation Assessment/Plan Mental disorder, not otherwise specified Orders: Electrocardiogram Adult [facility], 08/22/24 11:42:00 CDT Abnormal EKG R94.31 Priority Stat Frequency Once, [facility] - [facility], Orig Ref Doc Ruperto Luz Insert PIV, 08/22/24 11:42:00 CDT Once, PIV Patient Education Follow Up Medication Reconciliation Unchanged amLODIPine (amLODIPine 5 mg oral tablet)2 tab(s) Oral Daily. Refills: 0. gabapentin (gabapentin 300 mg oral capsule)1 Capsules Oral Three times daily. Refills: 0. glipiZIDE (glipiZIDE 10 mg oral tablet)1 tab(s) Oral Twice daily. hydroCHLOROthiazide (HCTZ) (hydroCHLOROthiazide (HCTZ) 12.5 mg oral tablet)1 tab(s) Oral Daily. insulin glargine (Lantus insulin Solostar Pen 100 units/mL subcutaneous solution)30 unit(s) Subcutaneous Daily. metFORMIN (metFORMIN 1000 mg oral tablet)1 tab(s) Oral Twice daily. multivitamin with minerals (One-A-Day Men 50 Plus oral tablet)1 tab(s) Oral Daily. omeprazole (omeprazole 40 mg oral delayed release capsule)1 Capsules Oral Daily. tamsulosin (tamsulosin 0.4 mg oral capsule)1 Capsules Oral Daily. tiZANidine (tiZANidine 4 mg oral tablet)1 tab(s) Oral Every 6 hours as needed as needed for muscle spasticity. ED Forms Problem List/Past Medical History Ongoing Diabetes Myocardial infarction Procedure/Surgical History R Total Knee Replacement Benign tumor right groin Vasectomy revision Vasectomy Cholecystectomy Right CTR Bilateral knee scopes, meniscus repair Back fusion L 4-5 05/21/2011 Right knee poly exchange 04/2011 Left hip and knee scope - meniscus debridement Medication Administration Given hydrOXYzine, 50 mg, Oral LORazepam INJ, 1 mg, IV Push ZyPREXA, 5 mg, Oral Allergies Dilaudid Vomiting Social History Smoking Status Never smoker Alcohol - Denies Alcohol Use Substance Abuse - Denies Substance Abuse Tobacco - Denies Tobacco Use Family History Lab Results HEMATOLOGY PROFILES LATEST RESULTS HISTORICAL RESULTS WBC 08/22/24 11:46 6.59 12/28/23 5.69 RBC 08/22/24 11:46 4.42 12/28/23 3.81 Low HGB 08/22/24 11:46 13.9 12/28/23 12.2 Low HCT 08/22/24 11:46 40.7 12/28/23 35.3 Low MCV 08/22/24 11:46 92.1 12/28/23 92.7 MCH 08/22/24 11:46 31.4 12/28/23 32.0 MCHC 08/22/24 11:46 34.2 12/28/23 34.6 RDW CV 08/22/24 11:46 12.8 12/28/23 12.4 PLT 08/22/24 11:46 302 12/28/23 226 MPV 08/22/24 11:46 10.0 12/28/23 10.2 % Neutrophils 08/22/24 11:46 78.7 12/28/23 68.6 Absolute Granulocytes 08/22/24 11:46 5.19 12/28/23 3.91 % Immature Granulocytes 08/22/24 11:46 0.2 12/28/23 .40 Abs Immature Granulocytes 08/22/24 11:46 0.01 12/28/23 0.02 % Lymphocytes 08/22/24 11:46 15.5 12/28/23 23.0 Abs Lymphocytes 08/22/24 11:46 1.02 Low 12/28/23 1.31 % Monocytes 08/22/24 11:46 4.7 12/28/23 6.0 Abs Monocytes 08/22/24 11:46 0.31 12/28/23 0.34 % Eosinophils 08/22/24 11:46 0.3 12/28/23 1.1 Abs Eosinophils 08/22/24 11:46 0.02 12/28/23 0.06 % Basophils 08/22/24 11:46 0.6 12/28/23 0.9 Abs Basophils 08/22/24 11:46 0.04 12/28/23 0.05 GENERAL CHEMISTRY LATEST RESULTS HISTORICAL RESULTS Sodium 08/22/24 11:46 139 12/28/23 143 Potassium 08/22/24 11:46 3.8 12/28/23 HEMOLYZED, unable to report due to interference Chloride 08/22/24 11:46 102.0 12/28/23 112 High CO2 08/22/24 11:46 30.0 12/28/23 25 Anion gap 08/22/24 11:46 8 12/28/23 10 Glucose Lvl 08/22/24 11:46 196 12/28/23 121 BUN 08/22/24 11:46 11 12/28/23 11 Creatinine, standardized 08/22/24 11:46 0.85 12/28/23 0.7 GFR for 08/22/24 11:46 >60 GFR non 08/22/24 11:46 >60 Calcium 08/22/24 11:46 9.3 12/28/23 7.3 Low Magnesium 08/22/24 11:46 1.9 12/24/23 1.53 Low Total Protein 08/22/24 11:46 6.7 12/28/23 5.4 Low Albumin 08/22/24 11:46 4.1 12/28/23 2.7 Low T Bili 08/22/24 11:46 0.56 12/28/23 0.33 Alkaline Phosphatase 08/22/24 11:46 115.0 12/28/23 43 AST-SGOT 08/22/24 11:46 30 12/28/23 29 ALT-SGPT 08/22/24 11:46 40 12/28/23 37 Free Thyroxine 08/22/24 11:46 1.30 3rd Generation TSH 08/22/24 11:46 0.542 Low MISC CHEMISTRY LATEST RESULTS Triiodothyronine (T-3), Free 08/22/24 11:46 3.14 URINALYSIS LATEST RESULTS HISTORICAL RESULTS COLOR 08/22/24 13:23 Light-Yellow 12/26/23 Grisel Abnormal CLARITY 08/22/24 13:23 Clear 12/26/23 Clear SPECIFIC GRAVITY 08/22/24 13:23 1.007 12/26/23 1.030 UA PH 08/22/24 13:23 5.5 12/26/23 5 UA GLUCOSE 08/22/24 13:23 300 Abnormal 12/26/23 50 Abnormal UA KETONES 08/22/24 13:23 Negative 12/26/23 Negative BILIRUBIN 08/22/24 13:23 Negative 12/26/23 Negative UA UROBILINOGEN 08/22/24 13:23 <=1 12/26/23 2.0 Abnormal UA BLOOD 08/22/24 13:23 Negative 12/26/23 Negative UA LEUKOCYTES 08/22/24 13:23 Negative 12/26/23 Negative UA NITRITE 08/22/24 13:23 Negative 12/26/23 Negative UA PROTEIN 08/22/24 13:23 Negative 12/26/23 Negative WBC 08/22/24 13:23 0-5 RBC 08/22/24 13:23 0-5 UA Epithelial Cells 08/22/24 13:23 0-10 UA Bacteria 08/22/24 13:23 None TOXICOLOGY LATEST RESULTS Urine Cannabinoids 08/22/24 13:26 Negative Urine Cocaine Metabolites 08/22/24 13:26 Negative Urine Opiates 08/22/24 13:26 Positive Urine Oxycodone 08/22/24 13:26 Positive Urine Phencyclidine 08/22/24 13:26 Negative Urine Barbiturate 08/22/24 13:26 Negative Urine Benzodiazepine 08/22/24 13:26 Negative Urine Fentanyl 08/22/24 13:26 Negative Acetaminophen Level 08/22/24 11:46 <2.0 Low Ethanol Lvl 08/22/24 11:46 <3.0 U Amphetamine/Methamphetamine 08/22/24 13:26 Negative U pH 08/22/24 13:26 5.5 BLOOD GASES- LATEST RESULTS Sample Type 08/22/24 11:46 Venous Sample Site 08/22/24 11:46 Venous pH Venous 08/22/24 11:46 7.370 pCO2 Venous 08/22/24 11:46 54.0 High pO2 Venous 08/22/24 11:46 24.0 Low BE Venous 08/22/24 11:46 4.5 Lactic Acid Venous 08/22/24 11:46 1.8 HCO3, Venous Blood Gas 08/22/24 11:46 31.2 Oxygen Saturation, Venous Blood Gases 08/22/24 11:46 40.4 Low Total CO2, Blood Gases 08/22/24 11:46 32.9 High Coronavirus COVID-19 LATEST RESULTS Covid-19 PCR 08/22/24 11:46 Negative IMMUNOLOGY/VIROLOGY LATEST RESULTS Influenza A Ag 08/22/24 11:46 Negative Influenza B Ag 08/22/24 11:46 Negative Diagnostic Results ECG 08/22/2024 Echocardiogram Transthoracic Complete (TTE) Patient Information Patient name: ALEKS FISH Date of : 1960 UEI: [id number] Age: 63 year(s) Gender: Male Visit number: [id number] Procedure Information Procedure: TTE procedure: Echo Transthoracic Complete, Complete 2D, M-mode, Complete Spectral Doppler, Color Flow. Study date and time: 12/25/2023 10:26 AM Blood pressure: 159 / 96 mmHg Study status: Routine Heart rate: 73 bpm Patient status: In-Patient Height: 74 in. Study location: Bedside Weight: 194.7 lb. Patient location: [facility] BSA: 2.15 m Technical quality: Poor visualization BMI: 25 kg/m Limitation reason: lung interference Contrast medium: Intravenous Definity was given Indication R06.02 Shortness of Breath. Procedure [employer] Operator: Daren Saha RDCS Interpreting physician: Cirilo Hernández MD Physician Conclusions Summary: Left ventricular systolic function is preserved, ejection fraction is 50%. Left ventricular diastolic function is abnormal, grade 1. Hypokinesis of basal inferior wall and inferoseptum suggests CAD in RCA territory. There is mild concentric left ventricular hypertrophy. There is trivial aortic regurgitation. Normal function of other valves. Signature Findings Left ventricle: Left ventricular size is normal. Left ventricular systolic function is preserved, ejection fraction is 50%. Left ventricular diastolic function is abnormal, grade 1. Hypokinesis of basal inferior wall and inferoseptum suggests CAD in RCA territory. There is mild concentric left ventricular hypertrophy. Right ventricle: Right ventricular size is normal. Right ventricular systolic function is normal. Right ventricular systolic pressure could not be assessed due to inadequate tricuspid regurgitation jet. Left atrium: Left atrial size is normal. Right atrium: Right atrial size is normal. Aortic valve: Aortic valve is not well seen. There is no evidence for aortic stenosis. There is trivial aortic regurgitation. Mitral valve: Mitral valve structure is normal. There is normal leaflet separation. There is no evidence for mitral valve stenosis. There is no mitral valve regurgitation. Tricuspid valve: Tricuspid valve not well seen. There is no evidence for tricuspid stenosis. There is no significant tricuspid regurgitation. Pulmonic valve: Pulmonic valve not well seen. There is no Doppler evidence for pulmonic stenosis or regurgitation. Aorta/Great vessels: Aortic root exhibited normal size. The IVC is normal in size and course. Respirophasic changes were normal. Pericardial: There is no pericardial effusion. Left Ventricle Diastolic dimension: 4.99 cm Systolic dimension: 3.8 cm 2D septum diastolic: 1.12 cm FS: 24 % (0.6 - 1.0 cm) CO: 3.28 l/min 2D post wall diastolic: 1.14 cm CI: 1.53 l/min/m (0.6 - 1 cm) LVESV MOD: 60.76 ml LV length: 9.46 cm LVESVI MOD: 28.28 ml/m LV mass (ASE formula): 214.28 g LVEDV (A2C): 107.82 ml LV mass index: 99.73 g/m LVESV (A2C): 51.79 ml RWT: 0.46 LVEDVI (A2C): 50.18 ml/m LVEDV MOD: 118.2 ml LVESVI (A2C): 24.11 ml/m LVEDVI MOD: 55.02 ml/m EF (A2C): 52 % EF Calculated: 48.6 % LVEDV (A4C): 128.16 ml LVESV (A4C): 65.97 ml (21 - 61 ml) LVEDVI (A4C): 59.65 ml/m LVESVI (A4C): 30.71 ml/m EF (A4C): 49 % Right Ventricle Diastolic dimension: 3.53 cm Left Atrium LA diameter (GE): 2.98 cm LA volume index: 13.06 ml/m (16 - 34 ml/m LA area: 12.37 cm LA volume: 28.07 ml Aortic Valve Peak velocity: 102.6 cm/s Mean velocity: 86.06 cm/s Peak gradient: 4.21 mmHg Mean gradient: 3.07 mmHg Area (cont VTI): 2.78 cm AV VTI: 16.21 cm LVOT Mean velocity: 56.19 cm/s AR peak velocity: 242.98 cm/s LVOT Mean gradient: 1.38 mmHg LVOT Peak velocity: 71.35 cm/s LVOT VTI: 12.51 cm LVOT Peak gradient: 2.04 mmHg LVOT diameter: 2.14 cm AV regurgitation PHT: 378.86 ms Mitral Valve Peak E-wave: 29.73 cm/s Peak A-wave: 60.72 cm/s E/A ratio: 0.49 Peak gradient: 0.35 mmHg Deceleration time: 263.25 ms Pulmonic Valve Peak velocity: 82.08 cm/s Peak gradient: 2.69 mmHg Acceleration time: 88.49 ms Aorta/Great Vessels Aortic root (2D): 3.82 cm LVOT diameter: 2.14 cm 12/25/2023 Emergency Services Note Basic Informatio n Chief Complaint dizziness, weakness for week and a half, shortness of breath started today around 0200 History of Present Illness Patient is a 63-year-old male past medical history of chronic abdominal and back pain, chronic leg pain, diabetes type 2 who comes emergency department complaining of pain for over a year with exacerbation of his pain last several weeks. Patient states he has been to many ER and primary care physicians who have been unable to explain his symptoms. Patient states he has had abdominal pain for approximately 11 months. His more left-sided than not. Today's complaint is also that he has 3 weeks of left leg specifically marina pain. He has had some falls but no acute or high-energy impacts to that area in the pain began after he stepped out of a chair not after a fall. He states he is having difficulty with urination and outside provider found a high PSH. He has no complaints of back pain at this time. He states is difficult to start urination and he only goes a little bit amount. He denies any new saddle anesthesia or incontinence. Review of Systems Review of system negative aside from pertinent positives included in HPI. Physical Exam Vitals and Measurements T: 36.0 C HR: 96 BP: 133/91 SpO2: 95% WT: 86.3 kg General: Alert and oriented, no acute distress HEENT: Normocephalic, PERRLA, EOMI, moist mucous membranes. Neck: Supple, no JVD Cardiac: Regular rate and rhythm, no murmur, no edema, adequate peripheral perfusion Pulmonary: Clear to auscultation bilaterally, symmetric expansion, normal inspiratory effort Abdomen: Soft, diffuse tenderness to palpation specifically on the left side, non-distended, normal bowel sounds MSK: Normal strength, no deformity or ecchymosis, tenderness palpation of the left knee and marina Integument: Warm, dry, no rash Neuro: CN II-XII grossly intact, no focal deficits Psych: Cooperative, appropriate mood and affect Procedure Medical Decision Making Presentation: Patient is a 63-year-old male presents for abdominal and leg pain. On presentation his vital signs are within normal limits. Physical exam reveals tenderness palpation of the left side of the abdomen as well as the left knee and marina Differential Diagnoses: Electrolyte derangement, pyelonephritis, cystitis, diverticulitis, acute fracture, soft tissue injury Labs/Imaging: Ordered and interpreted by me. CBC, CMP, inflammatory markers revealed no acute abnormality CT abdomen reveals no acute abnormality X-ray of the leg revealed no abnormalities ED interventions: Morphine for pain control Assessment and Disposition: Patient continued to complain of pain while in the emergency department. His workup is largely negative. He was unable to ambulate in the emergency department secondary to pain of the left knee and marina. Patient was admitted to internal medicine for further management of pain control, physical therapy, and potential placement of rehab if his left lower extremity pain should persist. Reexamination/Reevaluation Assessment/Plan Leg pain Ordered: PSO Place in Observation Orders: Urinalysis (Reflex Microscopic) Patient Education Follow Up No qualifying data available Medication Reconciliation Unchanged aspirin (aspirin 81 mg oral tablet)1 tab(s) Oral Daily. aspirin (Miniprin 81 mg oral delayed release tablet)Oral. 1 Unknown, [id number]. clopidogrel (Plavix 75 mg oral tablet)Oral. 1 Unknown, [id number]. diclofenac topical (Voltaren 1% topical gel) metFORMIN (Glucophage 1000 mg oral tablet) metoprolol (Toprol-XL 25 mg oral tablet, extended release)Oral. 1 Unknown, [id number]. ED Forms Problem List/Past Medical History Ongoing No qualifying data Historical No qualifying data Procedure/Surgical History Back fusion L 4-5 05/21/2011 Benign tumor right groin Bilateral knee scopes, meniscus repair Cholecystectomy Left hip and knee scope - meniscus debridement R Total Knee Replacement Right CTR Right knee poly exchange 04/2011 Vasectomy Vasectomy revision Medication Administration Given iohexol, 52926 mg, IV morphine INJ, 4 mg, Slow IV Push morphine INJ, 4 mg, Slow IV Push Allergies Dilaudid Social History Smoking Status Unknown if ever smoked Family History Lab Results HEMATOLOGY PROFILES LATEST RESULTS WBC 12/24/23 09:28 8.30 RBC 12/24/23 09:28 5.13 HGB 12/24/23 09:28 16.0 HCT 12/24/23 09:28 45.1 MCV 12/24/23 09:28 87.9 MCH 12/24/23 09:28 31.2 MCHC 12/24/23 09:28 35.5 RDW SD 12/24/23 09:28 40.0 RDW CV 12/24/23 09:28 12.4 PLT 12/24/23 09:28 341 MPV 12/24/23 09:28 10.6 % Neutrophils 12/24/23 09:28 73.8 Absolute Granulocytes 12/24/23 09:28 6.13 % Immature Granulocytes 12/24/23 09:28 .40 Abs Immature Granulocytes 12/24/23 09:28 0.03 % Lymphocytes 12/24/23 09:28 18.1 Abs Lymphocytes 12/24/23 09:28 1.50 % Monocytes 12/24/23 09:28 6.7 Abs Monocytes 12/24/23 09:28 0.56 % Eosinophils 12/24/23 09:28 0.5 Abs Eosinophils 12/24/23 09:28 0.04 Low % Basophils 12/24/23 09:28 0.5 Abs Basophils 12/24/23 09:28 0.04 % Nucleated RBCs 12/24/23 09:28 0.0 Absolute Nucleated RBCs 12/24/23 09:28 0.0 OTHER HEMATOLOGY TESTS LATEST RESULTS ESR 12/24/23 09:28 20.0 GENERAL CHEMISTRY LATEST RESULTS Sodium 12/24/23 09:28 136 Potassium 12/24/23 09:28 4.4 Chloride 12/24/23 09:28 100 CO2 12/24/23 09:28 28 Anion gap 12/24/23 09:28 13 Glucose Lvl 12/24/23 09:28 170 High BUN 12/24/23 09:28 13 Creatinine, standardized 12/24/23 09:28 0.8 Estimated GFR for Adults 12/24/23 09:28 96 Estimated GFR for peds 12/24/23 09:28 Not calculated Calcium 12/24/23 09:28 10.0 Magnesium 12/24/23 09:28 1.53 Low Total Protein 12/24/23 09:28 7.6 Albumin 12/24/23 09:28 4.1 T Bili 12/24/23 09:28 1.15 Alkaline Phosphatase 12/24/23 09:28 60 AST-SGOT 12/24/23 09:28 32 ALT-SGPT 12/24/23 09:28 50 Cardiac Markers LATEST RESULTS Troponin I Value 12/24/23 09:28 44 Troponin I Delta from Initial Value 12/24/23 09:28 N/A Troponin I Interp 12/24/23 09:28 See Comment POINT OF CARE LATEST RESULTS POC, Glucose 12/24/23 09:18 157 High Coronavirus COVID-19 LATEST RESULTS SARS-CoV2 Rapid Antigen 12/24/23 10:38 Negative IMMUNOLOGY/VIROLOGY LATEST RESULTS CRP 12/24/23 09:28 <0.4 Point of Care Labs LATEST RESULTS Influenza A Rapid POC 12/24/23 10:38 Negative Influenza B Rapid POC 12/24/23 10:38 Negative Diagnostic Results ECG Attestation by Marlon CONRAD, Marisol Boland on December 27, 2023 21:11 I personally saw and evaluated the patient. I discussed the management with the resident and reviewed the resident&rsquo;s note. I agree with the documented findings and plan of care. Procedures: _ Critical Care: _ 12/24/2023 Discharge Summaries Results Value Date Source Discharge Summary Date of Admission Date of Discharge 12/30/2023 Reason for Hospitalization dizziness, weakness for week and a half, shortness of breath started today around 0200 Hospital Course Patient is a 63-year-old gentleman with poorly controlled diabetes on insulin he presented today to the hospital with multiple complaints he complained of left leg pain for the past 1 week, abdominal pain for 6 months , weight loss and sob with exertion sciatica As per the physical examination looks like a sciatica x ray lumbar sacral spine negative for fracture MRI lumbar sacral spine concerning for spinal canal stenosis Oxycodone5 mg Q6 as needed for severe pain Gabapentin 300 mg 3 times a day Tylenol 625 mg every 6 hourly Follow-up with the spine surgery team as an outpatient Follow-up with the pain clinic as well Abdominal pain and weight loss early satiety EGD and colonoscopy was done at an outside facility a month ago As per the patient EGD was normal Colonoscopy showed polyps which were precancerous Record request sent on 12/24 from [facility]-unable to get the results from [facility] Gastric emptying study showed mild gastroparesis Recommended him to follow-up with GI as an outpatient along with the results of his EGD and colonoscopy Recommended him to take frequent but smaller portion of meals. Testicular swelling: Ultrasound of testes negative for infection and tumor PSA wnl Shortness of breath with exertion: Echocardiogram showed normal echocardiogram Stress myocardial perfusion imaging negative for any reversible ischemia EKG showed sinus rhythm with no ST-T wave normalities Discharge Diagnoses At high risk for falls Intractable pain Leg pain Ordered: [facility] - Physical Therapy Eval and Treat Low back pain Ordered: [facility] - Physical Therapy Eval and Treat Musculoskeletal immobility Ordered: [facility] - Physical Therapy Eval and Treat Unspecified severe protein-calorie malnutrition Orders: amLODIPine, 10 mg = 2 Tablet(s), Oral, Daily, # 60 Tablet(s), Refill(s) 0, Pharmacy: [facility], 187.9, cm, 12/28/23 15:41:00 CDT, Height (cm), kg, 12/26/23 14:40:00 CDT, Weight (kg), 88.5 gabapentin, 300 mg = 1 capsule(s), Oral, tid, # 90 capsule(s), Refill(s) 0, Pharmacy: [facility], 187.9, cm, 12/28/23 15:41:00 CDT, Height (cm), kg, 12/26/23 14:40:00 CDT, Weight (kg), 88.5 oxyCODONE, 5 mg = 1 Tablet(s), Oral, q4h, Scheduled / PRN PRN Pain, Moderate, # 18 Tablet(s), Refill(s) 0, 01/04/24, Pharmacy: [facility], 187.9, cm, 12/28/23 15:41:00 CDT, Height (cm), kg, 12/26/23 14:40:00 CDT, Weight (kg), 88.5 Discharge Patient Therapy Task Order - Outpatient PT Eval and Treat [facility] Therapy Task Order - Outpatient PT Eval and Treat Schedulable Other Diagnoses Ongoing No qualifying data Historical No qualifying data Operations and Procedures [facility] Pending Labs Discharge Disposition Home Medications New, Changed, or Refilled Medications amLODIPine (amLODIPine 5 mg) 10 mg, 2 Tablet(s), Oral, Daily, 60 Tablet(s), 0 Refill(s) gabapentin (gabapentin 300 mg 300 mg, 1 capsule(s), Oral, tid, 90 capsule(s), 0 Refill(s) oxyCODONE (oxyCODONE 5 mg) 5 mg, 1 Tablet(s), Oral, q4h, PRN: Pain, Moderate, 18 Tablet(s), 0 Refill(s) Medications to be Continued glipiZIDE (glipiZIDE 10 mg) 10 mg, 1 Tablet(s), Oral, bid hydroCHLOROthiazide (HCTZ) (h 12.5 mg, 1 Tablet(s), Oral, Daily insulin glargine (Lantus insu 30 units, Subcutaneous, Daily metFORMIN (metFORMIN 1000 mg) 1,000 mg, 1 Tablet(s), Oral, bid multivitamin with minerals (O 1 Tablet(s), Oral, Daily omeprazole (omeprazole 40 mg 40 mg, 1 capsule(s), Oral, Daily tamsulosin (tamsulosin 0.4 mg 0.4 mg, 1 capsule(s), Oral, Daily tiZANidine (tiZANidine 4 mg) 4 mg, 1 Tablet(s), Oral, q6h, PRN: as needed for muscle spasticity Discontinued Medications acetaminophen-oxyCODONE (acet 1 Tablet(s), Oral, q4h, may use q4-6h, PRN: as needed, 0 Refill(s) diclofenac (diclofenac sodium 75 mg, 1 Tablet(s), Oral, q12h, PRN: as needed for pain Physical Exam at Discharge Vitals and Measurements T: 36.7 C TMIN: 36.3 C TMAX: 36.7 C HR: 70 RR: 18 BP: 161/99 SpO2: 98% Mental status alert oriented x 3 Lungs clear to auscultation HEENT normocephalic, CVS S1-S2 no added sounds Time Spent 30 minutes Follow Up Appointments With When Contact Information Pcp Undesignated, [id number] Within 1 month Additional Instructions: Kamron CONRAD, Shawn Jim, NEUROSURGERY, Neurosurgery Within 1 month Additional Instructions: MRI lumbar spine concerning for moderate spinal canal stenosis of L4-5 S1 Jose CONRAD, Juan C [place], GASTROENTEROLOGY, Gastroenterology Within 1 month Additional Instructions: gastroparersis Nursing/Other Orders DME - Walker. 12/30/23 13:19:00 CDT, Once, 12/30/23 13:19:00 CDT, Wheeled Walker ([id number]), None, Leg pain Low back pain Musculoskeletal immobility Outpatient - Physical Therapy Eval and Treat. 12/30/23 13:19:00 CDT, Eval and Treat, PT eval and treat, Location: PT - No Preference, Leg pain Low back pain Musculoskeletal immobility, 88.5 kg, BMI 25.1 Diabetic Diet, Adult (carbohydrate consistent). Ordered on 12/24/23 17:35:00 CDT, Meal Start Time Breakfast 0700 to 0900, Diet Modifications Diabetic, General Fall Precautions. 12/24/23 20:24:03 CDT. Order comment: order placed from nursing documentation CLIN_FALL_RISK Activity As Tolerated. 12/24/23 17:35:00 CDT, Continuous Order 12/30/2023 History and Physicals Results Value Date Source History and Physical Chief Complaint diz ziness, weakness for week and a half, shortness of breath started today around 0200 History of Present Illness Patient is a 63-year-old gentleman with poorly controlled diabetes on insulin he presented today to the hospital with multiple complaints he complained of left leg pain for the past 1 week as per the patient he has pain. Is very severe electrical in nature goes from the back to the foot of the left leg and it has incapacitated him and he is unable to walk because of severe pain. He has seen the chiropractor for the pain however the pain did not get better even got worse denies any recent lifting of heavy weights Or any fall. No other complaint he had his regarding early satiety and abdominal discomfort. He has follow-up with his PCP and GI as an outpatient and he has got EGD and colonoscopy. EGD was within normal limits as per the patient and does not show any cancerous growth. However the colonoscopy showed some polyps which were precancerous, patient did not have any records with him at this time. He also complained of loss of around 60 pounds over the past 1 year. Denies any night sweats runny nose sore throats. He also complained of testicular swelling for the past 7 days. He mentioned that he was seen at outside facility where he got ultrasound where the doctor told him he might have an infection or a cancer. He was started on antibiotics by the outside facility. He also complained of shortness of breath for the past couple of months. Denies any chest pain, denies any orthopnea or PND Patient is a Jehovah witness. His family was present at the bedside. Review of Systems 10 point review of system was completed and was negative septa in HPI Physical Exam Vitals and Measurements T: 36.0 C HR: 98 RR: 16 BP: 148/115 SpO2: 99% WT: 86.3 kg Mental status alert oriented x 3 Lungs clear to auscultation HEENT normocephalic atraumatic CVS S1-S2 no added sound Spine examination nontender on palpation Extremity examination left sided straight leg raising test positive, straight leg raising test negative on right side Abdomen soft nontender bowel sounds present Vascular admission pulses palpable perfusion normal Skin no evidence of edema Genital examination was not done as the patient had some tenderness of the testes and in for his comfort the decision was taken mutually to order ultrasound Assessment/Plan Leg pain As per the physical examination looks like a sciatica We will order the x-ray of the lumbosacral spine to rule out any fracture Pain control with IV morphine 1 mg every 4 for severe pain Oxycodone 5 mg Q6 as needed for moderate pain Gabapentin 200 mg 3 times a day Tylenol 625 mg every 6 hourly Abdominal pain and weight loss early satiety EGD and colonoscopy was done at an outside facility a month ago As per the patient EGD was normal Colonoscopy showed polyps which were precancerous We will try to get the records from outside hospital [facility] Gastric emptying study ordered Testicular swelling: Ultrasound of testes ordered PSA ordered Shortness of breath with exertion: Echocardiogram ordered We will do stress myocardial perfusion imaging as well EKG showed sinus rhythm with no ST-T wave normalities Insulin-dependent diabetes mellitus: At home patient takes Lantus 30 units at morning along with metformin and glipizide In the hospital patient going to be on 17 units in morning , sliding and carb correction HbA1c ordered DVT prophylaxis Lovenox Diet carb consistent Orders: acetaminophen, 650 mg = 2 Tablet(s), form: Tablet, Oral, q6h, Routine, first dose 12/24/23 18:00:00 CDT aspirin, 81 mg = 1 Tablet(s), form: Tablet EC, Oral, Daily, Routine, first dose 12/25/23 9:00:00 CDT enoxaparin, 40 mg = 0.4 mL, form: Injection, Subcutaneous, At Bedtime, Routine, first dose 12/24/23 21:00:00 CDT gabapentin, 200 mg = 2 capsule(s), form: Capsule, Oral, tid, Routine, first dose 12/24/23 21:00:00 CDT glucagon, 1 mg, form: Injection, IM, As Indicated, PRN for Hypoglycemia, Routine, first dose 12/24/23 17:43:00 CDT, Blood glucose <= 69 mg/dL; (Unconscious or on tube feeds) w/o IV access, give 1 mg glucagon IM once and start IV with normal saline (NS) to keep... glucose, 12.5 g = 25 mL, form: Injection Syringe, IV Push, As Indicated, PRN for Hypoglycemia, Routine, first dose 12/24/23 17:43:00 CDT, if Blood glucose <= 69 mg/dL; (unconscious OR on tube feeds) w/ IV access OR (patient is conscious and NPO) glucose, 16 g = 4 Tablet(s), form: Tablet Chew, Oral, As Indicated, PRN for Hypoglycemia, Routine, first dose 12/24/23 17:43:00 CDT, Blood glucose <= 69 mg/dL and pt is conscious and NOT NPO. insulin glargine, 17 units = 0.17 mL, form: Injection, Subcutaneous, Daily, Routine, first dose 12/25/23 9:00:00 CDT insulin lispro, 1 unit per 15 g of carbs, form: Injection, Subcutaneous, tid w/Meals, first dose 12/25/23 7:30:00 CDT insulin lispro, 1-7 units, Injection, Subcutaneous, tid w/Meals, first dose 12/25/23 7:30:00 CDT insulin lispro, 1 unit per 15 g of carbs, form: Injection, Subcutaneous, As Indicated PRN for Snacks, first dose 12/24/23 17:43:00 CDT morphine, 1 mg = 0.5 mL, form: Injection, Slow IV Push, q4h, PRN for Pain, Severe, Routine, first dose 12/24/23 17:38:00 CDT, Physician Stop oxyCODONE, 5 mg = 1 Tablet(s), form: Tablet, Oral, q6h, PRN for Pain, Moderate, Routine, first dose 12/24/23 17:39:00 CDT Activity As Tolerated CBC with Auto Differential Code Status Comprehensive Metabolic Panel Consult Inpt Occupational Therapy Eval and Treat Consult Inpt Physical Therapy Eval and Treat Diabetic Diet, Adult (carbohydrate consistent) Echocardiogram Transthoracic Complete (TTE) Fingerstick Glucose Fingerstick Glucose Hemoglobin A1C Hypoglycemia Order Set NM Gastrointestinal Exam Notify Provider O2 Initiation Standard Provider to Nursing Communication US Scrotum Vital Signs per Standard of Care XR Spine Lumbosacral Problem List/Past Medical History Ongoing No qualifying data Historical No qualifying data Procedure/Surgical History Back fusion L 4-5 05/21/2011 Benign tumor right groin Bilateral knee scopes, meniscus repair Cholecystectomy Left hip and knee scope - meniscus debridement R Total Knee Replacement Right CTR Right knee poly exchange 04/2011 Vasectomy Vasectomy revision Medications Inpatient aspirin 81 mg oral EC tablet delayed release, 81 mg= 1 Tablet(s), Oral, Daily D50W injectable, 12.5 g= 25 mL, IV Push, As Indicated, PRN dextrose chewable tablet, 16 g= 4 Tablet(s), Oral, As Indicated, PRN enoxaparin, 40 mg= 0.4 mL, Subcutaneous, At Bedtime gabapentin, 200 mg= 2 capsule(s), Oral, tid glucagon, 1 mg, IM, As Indicated, PRN insulin glargine, 17 units= 0.17 mL, 0.2 units/kg, Subcutaneous, Daily insulin lispro - carb ratio, 1 unit per 15 g of carbs, Subcutaneous, tid w/Meals insulin lispro - carb ratio, 1 unit per 15 g of carbs, Subcutaneous, As Indicated, PRN insulin lispro - correction scale, 1-7 units, Subcutaneous, tid w/Meals morphine 6mg/0.6 mL inj solution, 1 mg= 0.5 mL, Slow IV Push, q4h, PRN oxyCODONE 5 mg oral tablet, 5 mg= 1 Tablet(s), Oral, q6h, PRN Tylenol 325 mg oral tablet, 650 mg= 2 Tablet(s), Oral, q6h Home aspirin 81 mg oral tablet, 81 mg= 1 Tablet(s), Oral, Daily Glucophage 1000 mg oral tablet Miniprin 81 mg oral delayed release tablet, Oral Plavix 75 mg oral tablet, Oral Toprol-XL 25 mg oral tablet, extended release, Oral Voltaren 1% topical gel Allergies Dilaudid Social History Smoking Status Unknown if ever smoked Family History Family history significant for colorectal cancer and breast cancer bone tumors in the maternal as well as paternal family Immunizations Vaccine Date Status influenza virus vaccine inactivated 06/13/2013 Given influenza virus vaccine inactivated 04/21/2011 Given Lab Results Diagnostic Results 12/24/2023 Vital Signs Vital Sign Value Date Comments Source Report Given to Veena 08/22/2024 23:59:00 [facility] Heart Rate 103 bpm 08/22/2024 22:19:41 [facility] SpO2 98 % 08/22/2024 22:19:41 [facility] Rounding Other: Report given to Cam Curiel. 08/22/2024 22:19:00 [facility] Heart Rate 108 bpm 08/22/2024 22:17:11 [facility] SpO2 98 % 08/22/2024 22:17:11 [facility] Mean NIBP 113 mm[Hg] 08/22/2024 20:53:02 [facility] SpO2 99 % 08/22/2024 20:30:00 [facility] Heart Rate 100 bpm 08/22/2024 20:30:00 [facility] SBP NIBP 150 mm[Hg] 08/22/2024 20:30:00 [facility] DBP NIBP 76 mm[Hg] 08/22/2024 20:30:00 [facility] Respiratory Rate 20 breaths/min 08/22/2024 20:30:00 [facility] Heart Rate 103 bpm 08/22/2024 19:33:43 [facility] SpO2 97 % 08/22/2024 19:33:43 [facility] Mean NIBP 111 mm[Hg] 08/22/2024 19:30:02 [facility] SBP NIBP 173 mm[Hg] 08/22/2024 19:30:02 [facility] DBP NIBP 77 mm[Hg] 08/22/2024 19:30:02 [facility] Respiratory Rate 20 breaths/min 08/22/2024 19:30:00 [facility] Mean NIBP 114 mm[Hg] 08/22/2024 19:15:02 [facility] SBP NIBP 160 mm[Hg] 08/22/2024 19:15:02 [facility] DBP NIBP 81 mm[Hg] 08/22/2024 19:15:02 [facility] Respiratory Rate 20 breaths/min 08/22/2024 19:15:00 [facility] SBP NIBP 145 mm[Hg] 08/22/2024 18:30:04 [facility] DBP NIBP 85 mm[Hg] 08/22/2024 18:30:04 [facility] Mean NIBP 110 mm[Hg] 08/22/2024 18:30:04 [facility] Respiratory Rate 20 breaths/min 08/22/2024 18:30:00 [facility] Weight (kg) 74.3 kg 08/22/2024 16:35:00 [facility] Temperature (Celsius) 35.9 Traci 08/22/2024 16:35:00 [facility] SBP NIBP 133 mm[Hg] 05/03/2024 16:00:23 [facility] DBP NIBP 86 mm[Hg] 05/03/2024 16:00:23 [facility] Respiratory Rate 15 breaths/min 05/03/2024 16:00:14 [facility] Heart Rate 74 bpm 05/03/2024 16:00:14 [facility] SpO2 98 % 05/03/2024 16:00:14 [facility] Respiratory Rate 13 breaths/min 05/03/2024 15:44:44 [facility] Heart Rate 85 bpm 05/03/2024 15:44:44 [facility] SpO2 100 % 05/03/2024 15:44:44 [facility] SBP NIBP 142 mm[Hg] 05/03/2024 15:40:18 [facility] DBP NIBP 84 mm[Hg] 05/03/2024 15:40:18 [facility] Respiratory Rate 16 breaths/min 05/03/2024 15:37:14 [facility] Heart Rate 90 bpm 05/03/2024 15:37:14 [facility] SpO2 100 % 05/03/2024 15:37:14 [facility] SBP NIBP 131 mm[Hg] 05/03/2024 15:35:18 [facility] DBP NIBP 79 mm[Hg] 05/03/2024 15:35:18 [facility] Heart Rate 92 bpm 05/03/2024 15:34:44 [facility] Respiratory Rate 15 breaths/min 05/03/2024 15:34:44 [facility] SpO2 100 % 05/03/2024 15:34:44 [facility] Temperature (Celsius) 36 Traci 05/03/2024 15:34:00 [facility] SBP NIBP 127 mm[Hg] 05/03/2024 15:32:52 [facility] DBP NIBP 79 mm[Hg] 05/03/2024 15:32:52 [facility] Weight (kg) 79.9 kg 05/03/2024 14:25:00 [facility] Temperature (Celsius) 36.4 Traci 05/03/2024 14:25:00 [facility] Height (cm) 188 cm 05/03/2024 14:25:00 [facility] BMI 22.6 kg/m2 05/03/2024 14:25:00 [facility] Temperature (Celsius) 36.7 Traci 12/30/2023 12:55:00 [facility] Heart Rate 70 bpm 12/30/2023 12:55:00 [facility] Respiratory Rate 18 breaths/min 12/30/2023 12:55:00 [facility] SBP NIBP 161 mm[Hg] 12/30/2023 12:55:00 [facility] DBP NIBP 99 mm[Hg] 12/30/2023 12:55:00 [facility] SpO2 98 % 12/30/2023 12:55:00 [facility] SBP NIBP 146 mm[Hg] 12/30/2023 08:00:00 [facility] DBP NIBP 83 mm[Hg] 12/30/2023 08:00:00 [facility] Heart Rate 67 bpm 12/30/2023 08:00:00 [facility] SpO2 96 % 12/30/2023 08:00:00 [facility] Respiratory Rate 16 breaths/min 12/30/2023 08:00:00 [facility] SBP NIBP 149 mm[Hg] 12/30/2023 00:33:28 [facility] DBP NIBP 86 mm[Hg] 12/30/2023 00:33:28 [facility] Mean NIBP 107 mm[Hg] 12/30/2023 00:33:28 [facility] Heart Rate 79 bpm 12/30/2023 00:33:28 [facility] SpO2 97 % 12/30/2023 00:33:28 [facility] Temperature (Celsius) 36.3 Traci 12/30/2023 00:33:28 [facility] Respiratory Rate 20 breaths/min 12/30/2023 00:33:28 [facility] SBP NIBP 143 mm[Hg] 12/29/2023 19:34:45 [facility] DBP NIBP 88 mm[Hg] 12/29/2023 19:34:45 [facility] Mean NIBP 106 mm[Hg] 12/29/2023 19:34:45 [facility] Heart Rate 71 bpm 12/29/2023 19:34:45 [facility] SpO2 98 % 12/29/2023 19:34:45 [facility] Temperature (Celsius) 36.6 Traci 12/29/2023 19:34:45 [facility] Respiratory Rate 18 breaths/min 12/29/2023 19:34:45 [facility] Mean NIBP 111 mm[Hg] 12/29/2023 10:56:47 [facility] Temperature (Celsius) 36.2 Traci 12/29/2023 10:56:47 [facility] Mean NIBP 106 mm[Hg] 12/29/2023 01:00:36 [facility] Height (cm) 187.9 cm 12/28/2023 12:00:00 [facility] Height (cm) 187.9 cm 12/28/2023 01:14:00 [facility] Height (cm) 187.9 cm 12/27/2023 21:00:00 [facility] Height (cm) 187.9 cm 12/27/2023 02:00:00 [facility] [place] Body Weight 86.4kg 12/26/2023 19:59:00 [facility] Weight (kg) 88.5 kg 12/26/2023 19:25:00 [facility] BMI 25.1 kg/m2 12/26/2023 19:25:00 [facility] Weight (kg) 88.5 kg 12/25/2023 00:52:00 [facility] Report Given to nurse 12/24/2023 23:30:00 [facility] Weight (kg) 86.3 kg 12/24/2023 14:20:00 [facility] Encounters Location Location Details Encounter Type Encounter Number Reason For Visit Attending Provider ADM Date DC Date Status Source [facility] Emergency [id number] Missy Mercado 12/22 19:50 :39 12/22 20:13 :00 [facility] Inpatient [id number] Lavelle Brown III 12/23 14:14 :36 12/29 19:45 :00 [facility] [id number] Lise Shaver 05/03 14:10 :00 05/03 16:11 :00 [facility] Between Visit [id number] 05/13 17:33 :41 05/14 05:59 :59 [facility] Between Visit [id number] 05/16 19:12 :26 05/17 05:59 :59 [facility] [id number] Jennie Salguero 08/22 16:22 :08 08/22 23:00 :00 [facility] OUTPATIENT [id number] 4-6 WK F/U RTK 09/23/13 Bhajanjit Bal Cancel [facility] [place] [id number] CONT R KNEE PAIN;S/ P RTKA 09/2013 Bhajanjit Bal Cancel [facility] OUTPATIENT [id number] CONT R KNEE PAIN;S/ P RTKA 09/2013 Bhajanjit Bal Cancel [facility] Procedures Procedure Code Date Perfomer Comments Source Back fusion L 4-5 05/21/2011 [facility] Right knee poly exchange 04/2011 [facility] Left hip and knee scope - meniscus debridement [facility] Social History Social History Date Source Social History TypeResponse Sex Male Sex Representation Male (finding) 08/22/2024 [facility] Social History TypeResponse Sex Male Sex Representation Male (finding) 05/17/2024 [facility] Social History TypeResponse Sex Male Sex Representation Male (finding) 05/14/2024 [facility] Social History TypeResponse Sex Male Sex Representation Male (finding) 05/03/2024 [facility] Social History TypeResponse Sex Male Sex Representation Male (finding) 12/30/2023 [facility] Social History TypeResponse Sex Male Sex Representation Male (finding) 12/23/2023 [facility]
--- OUTSIDE RECORDS SUMMARY | 2024-09-16 08:40 | XMS_ITS ---
Author Organization [facility] Address [address] [place] [id number] Care Team Providers Care Child Development Director Name Role Phone Juan C Monique MD Primary Care Provider Unavail able Luisa Brandt Unavailable [phone] Kai Gagnon Unavailable [phone] REASON FOR VISIT 4 WK F/U Encounters Encounter Location Date Provider Diagnosis [facility] [address] [place] [id number] 09/16/2024 Kai Gagnon Plan Of Treatment No Information Progress Notes * ALEXX FINKDOB:[birth year] (64 yo M)Acc No.[id number]:09/16/2024 UNLOCKED PROGRESS NOTE Progress Notes Patient: ALEXX VIRAMONTES Provider: EB Kwong :1960 A ge:63 Y S ex:Male Date:09/16/2024 Address:[facility] [id number] Pcp:Juan C Monique MD Subjective: * Chief Complaints: * 1 . 4 WK F/U. * Medical History: Objective: * Vitals: Assessment: Plan: * Treatment: * * Preventive Medicine: CQMs: C olorectal Cancer Screening: Last done Colonoscopy: 0 05/26/2024 Dr. Zambranoults: no pathHistory: Abnormal CTA / Colon polypsFollow up: 5 years * * Electronic signature of ABRAM Summers on 12/18/2024 at 07:31 PM CDT Sign off status: Pending * Provider: EB Kwong Date: 0 09/16/2024 Generated for Thai alves/Nancy/Arian on: 0 12/18/2024 07:31 PM CDT
--- OUTSIDE RECORDS SUMMARY | 2024-12-18 19:31 | XMS_ITS | Patient Health Record ---
Author Organization [facility] Address [address] [place] [address] Care Team Providers Care Ict Educator Name Role Phone Juan C Monique MD Primary Care Provider Unavail able Luisa Brandt Unavailable [phone] Ruperto Sue Unavailable [phone] Lise Shaver Unavailable [phone] Kai Gagnon Unavailable [phone] Allergies Allergen (clinical drug ingredient) Drug/Non Drug Allergy documented on EMR Reaction Allergy Type Onset Date Status hydromorphone Dilaudid Nausea/Vomiting Drug Allergy Active Results Component Value Reference Range Notes BUN (Blood Urea Nitrogen) Reviewed date:05/14/2024 10:39:02 AM Interpretation: Performing Lab: Notes/Report: Items were attached to this order: PRECISION CROP MANAGER UREA NITROGEN 12.9 8.0-23.0 MG/DL Creatinine Reviewed date:05/14/2024 10:38:57 AM Interpretation: Performing Lab: Notes/Report: Items were attached to this order: PRECISION CROP MANAGER CREATININE 0.78 0.70-1.20 mg/dl Glomerular Filtration Rate,Sebastian co 106 >60 ML/MIN/1.73 M2 If patient is -Bhutanese, multiply results by 1.210. Patient must be 18 years of age or more for calculation to be valid. GFR values below 60 ML/MIN/1.73M2 are consistent with chronic kidney disease. CT ANGIO ABDOMEN - [id number] Reviewed date:05/18/2024 04:20:59 PM Interpretation: Performing Lab: Notes/Report: FINAL RESULT [facility] RADIOLOGY DEPARTMENT [address] [place] [address]. [place], [place] PATIENT:ALEXX FINK MR: [id number] PHYSICIAN:RUPERTO SUE M.D. DATE PERFORMED: 05/04/24 : 965/M CT ANGIOGRAM OF THE ABDOMEN WITH CONTRAST COMPARISON: CT abdomen performed at another facility December 24, 2023. HISTORY: Abdominal pain. Left upper quadrant abdominal pain for one year. Weight loss of 75 pounds in 5 months. Previous cholecystectomy. TECHNIQUE: CT of the abdomen using 90 cc Isovue-370 as IV contrast. Sagittal and coronal reformatted images were obtained. 3-D reformatted images were also obtained. FINDINGS: The lung bases are clear. The gallbladder is surgically absent. The liver is normal in appearance. The spleen is normal in appearance. The bilateral adrenal glands are thickened. Significance is uncertain. The kidneys are normal in appearance. There is mild bilateral perinephric fat stranding, often an incidental finding, can be seen in inflammation or infection. The pancreas is normal in appearance. The stomach is normal in appearance. No bowel obstruction is identified. There is no evidence of diverticulitis. A moderate to large amount of stool is present in the colon. Amount of stool is greatest in the transverse colon. There is an area of apparent wall thickening and hypervascularity involving the colon at the hepatic flexure and upper edge of the ascending colon. It could be a mass in this area. This could also be related to focal inflammation or infection. This area was not seen on the previous exam.. No free fluid or free air is identified. Calcified and noncalcified plaque is seen within the aorta and its major branches. The abdominal aorta is normal in diameter. The celiac artery is normal in diameter. There is approximately 50% narrowing of the proximal superior mesenteric artery which appears to be related to noncalcified plaque. The inferior mesenteric artery appears normal. There are 2 right renal arteries, both of which appear patent. Calcifications are seen at the origin of the single left renal artery, with less than 25% narrowing. No enlarged lymph nodes are identified. The anterior abdominal wall is patent. There are degenerative changes of the spine. Degrees of central canal or neural foraminal narrowing cannot be adequately assessed based on this exam. There are surgical changes of the lower spine. IMPRESSION: 1. Approximately 50% narrowing of the proximal superior mesenteric artery, and appears to be related to noncalcified plaque. 2. Area of hypervascularity and wall thickening involving the colon at the hepatic flexure and upper ascending colon. There could be a mass in this area. Inflammation or infection could give a similar appearance. 3. Additional findings described above. Electronically signed by: Iliana Macias MD05/04/2024 9:46 AM WS: [id number] CT ANGIO ABDOMEN FINAL RESULT CT ANGIO ABDOMEN [facility] CT ANGIO ABDOMEN RADIOLOGY DEPARTMENT CT ANGIO ABDOMEN [address] [facility] ANGIO ABDOMEN [place], [place] CT ANGIO ABDOMEN CT ANGIO ABDOMEN ____ __ CT ANGIO ABDOMEN PATIENT:POLINA FINK MR: [id number] CT ANGIO ABDOMEN PHYSICIAN:RUPERTO EVANS M.D. DATE PERFORMED: 05/04/24 CT ANGIO ABDOMEN : [id number]/[place] CT ANGIO ABDOMEN CT ANGIOGRAM OF THE ABDOMEN WITH CONTRAST CT ANGIO ABDOMEN COMPARISON: CT abdom en performed at another facility December 24, 2023. CT ANGIO ABDOMEN HISTORY: Abdominal p ain. Left upper quadrant abdominal pain for one CT ANGIO ABDOMEN year. Weight loss of 75 pounds in 5 months. Previous cholecystectomy. CT ANGIO ABDOMEN TECHNIQUE: CT of the abdomen using 90 cc Isovue-[address] ANGIO ABDOMEN Sagittal and coronal reformatted images were obtained. 3-D reformatted CT ANGIO ABDOMEN images were also obtained. CT ANGIO ABDOMEN FINDINGS: CT ANGIO ABDOMEN The lung bases are clear. CT ANGIO ABDOMEN The gallbladder is surgically absent. CT ANGIO ABDOMEN The liver is normal in appearance. CT ANGIO ABDOMEN The spleen is normal in appearance. CT ANGIO ABDOMEN The bilateral adrena l glands are thickened. Significance is uncertain. CT ANGIO ABDOMEN The kidneys are norm al in appearance. There is mild bilateral CT ANGIO ABDOMEN perinephric fat stranding, often an incidental finding, can be seen in CT ANGIO ABDOMEN inflammation or infection. CT ANGIO ABDOMEN The pancreas is norm al in appearance. CT ANGIO ABDOMEN The stomach is alfa l in appearance. CT ANGIO ABDOMEN No bowel obstruction is identified. There is no evidence of CT ANGIO ABDOMEN diverticulitis. A moderate to large amount of stool is present in the CT ANGIO ABDOMEN colon. Amount of sto ol is greatest in the transverse colon. There is an CT ANGIO ABDOMEN area of apparent wal l thickening and hypervascularity involving the colon CT ANGIO ABDOMEN at the hepatic flexu re and upper edge of the ascending colon. It could CT ANGIO ABDOMEN be a mass in this ar ea. This could also be related to focal inflammation CT ANGIO ABDOMEN or infection. This a margoth was not seen on the previous exam.. CT ANGIO ABDOMEN No free fluid or alex e air is identified. CT ANGIO ABDOMEN Calcified and noncalcified plaque is seen within the aorta and its major CT ANGIO ABDOMEN branches. The abdomi nal aorta is normal in diameter. CT ANGIO ABDOMEN The celiac artery is normal in diameter. CT ANGIO ABDOMEN There is approximate ly 50% narrowing of the proximal superior mesenteric CT ANGIO ABDOMEN artery which appears to be related to noncalcified plaque. CT ANGIO ABDOMEN The inferior mesente connie artery appears normal. CT ANGIO ABDOMEN There are 2 right re nal arteries, both of which appear patent. CT ANGIO ABDOMEN Calcifications are s een at the origin of the single left renal artery, CT ANGIO ABDOMEN with less than 25% narrowing. CT ANGIO ABDOMEN No enlarged lymph no trent are identified. CT ANGIO ABDOMEN The anterior abdomin al wall is patent. CT ANGIO ABDOMEN There are degenerati ve changes of the spine. Degrees of central canal or CT ANGIO ABDOMEN neural foraminal narrowing cannot be adequately assessed based on this CT ANGIO ABDOMEN exam. There are surg ical changes of the lower spine. CT ANGIO ABDOMEN IMPRESSION: CT ANGIO ABDOMEN 1. Approximately 50% narrowing of the proximal superior mesenteric CT ANGIO ABDOMEN artery, and appears to be related to noncalcified plaque. CT ANGIO ABDOMEN 2. Area of hypervascularity and wall thickening involving the colon at CT ANGIO ABDOMEN the hepatic flexure and upper ascending colon. There could be a mass in CT ANGIO ABDOMEN this area. Inflammat ion or infection could give a similar appearance. CT ANGIO ABDOMEN 3. Additional findin gs described above. CT ANGIO ABDOMEN Electronically hussain d by: Iliana Macias MD05/04/2024 9:[address] ANGIO ABDOMEN WS: [id number] Reason For Referral Reason CT Angio Abd Diagnosis 1 ABDOMINAL PAIN (R10. 9) Diagnosis 2 GASTRIC WALL THICKEN ING (K31.89) Referral Organization [facility] Gastroenterol ogy Referring Provider First Name Ruperto Referring Provider Last Name Seralyndsay Referring Provider Speciality Gastroente rology Referred Organization [facility] Radiology Referred Address [address] [facility],[place], [place],[id number] Referred Provider Specialty Radiology Procedure 1 CTA ABDOMEN (47074) Clinical Notes Lexi Gonzalez 04/27/20 24 08:29:25 AM >INS ACTIVE, MEDICARE NO AUTH RQD Referral Priority Routine Referral Appointment Date 05/04/2024 Reason EGD/EUS Diagnosis 1 GASTRIC WALL THICKEN ING (K31.89) Diagnosis 2 WEIGHT LOSS (R63.4) Diagnosis 3 ABDOMINAL PAIN (R10. 9) Referral Organization [facility] Gastroenterol ogy Referring Provider First Name Ruperto Referring Provider Last Name Natty Referring Provider Speciality Gastroente rology Referred Organization Endo Scheduling - Referred Provider Lise Shaver Referred Provider Specialty Surgery Procedure 1 UPPER GI ENDOSCOPY D X (08253) Procedure 2 UPPER GI ENDOSCOPY, BX (39483) Procedure 3 ESOPH EGD DILATION < 30 MM (21679) Procedure 4 UPR GI NDSC NDSC US XM LMTD ESOPH (99784) Procedure 5 UPPR GI ENDOSCOPY W/ US FN BX (22142) Clinical Notes Ml Montemayor 024 05:19:39 PM >medicare - active / no pa req Referral Priority Routine Referral Appointment Date 05/03/2024 Reason Colon- [facility] Diagnosis [address] SCAN, CO RONALD (R93.3) Diagnosis 2 ABDOMINAL PAIN (R10. 9) Diagnosis 3 WEIGHT LOSS (R63.4) Referral Organization [facility] Gastroenterol ogy Referring Provider First Name Ruperto Referring Provider Last Name Natty Referring Provider Speciality Gastroente rology Referred Organization [facility] Surgery Cente r Referred Address [address],[place], [place],[address],[place] Referred Provider Specialty Surgery Procedure 1 COLONOSCOPY, DIAG OR SCRN (73205) Procedure 2 COLONOSCOPY W/ BIOPS Y (16308) Procedure 3 COLONOSCOPY W/SNARE POLYP (91942) Clinical Notes MontemayorMl 025 04:55:13 PM >medicare - active / no pa req Referral Priority Routine Referral Appointment Date 05/26/2024 Medications Medication SIG (Take, Route, Frequency, Duration) Notes Start Date End Date Status Lantus SoloStar 100 UNIT/ML INJECT 30 UNITS SUBCUTANEOUSLY ONCE DAILY INCREASE BY 5 UNITS EVERY 3 DAYS IF ALL FASTING GLUCOSE ABOVE 150 Subcutaneous for 50 Days Active Meloxicam 15 MG 1 tablet Orally Once a day Active Multivitamin Active Cyclobenzaprine HCl 5 MG TAKE 1 TABLET B Y MOUTH THREE TIMES DAILY NEEDED FOR MUSCLE SPASM Oral for 30 Days Not-Taking Erythromycin 250 MG take 1 tablet Orally three times daily prior to a meal for 30 days 07/01/2024 Not-Taking Gabapentin 100 MG TAKE 1 CAPSULE BY [facility] THREE TIMES DAILY Oral for 30 Days Not-Taking Omeprazole 40 MG TAKE 1 CAPSULE BY [facility] ONCE DAILY Oral for 90 Days Active oxyCODONE-Acetaminophen 10-325 MG TAKE 1 TABLET BY MOUTH EVERY 4 HOURS NEEDED FOR SEVERE PAIN. MAX 5 IN 24 HOUR PERIOD Oral for 28 Days Active Reglan 10 MG 1 tablet Orally thre e times daily prior to meals, and once at bedtime for 30 days 05/26/2024 Active Stool Softener Activ e Immunizations Vaccine Route Administration Date Status Comme nts Novel [id number], all formulations OTH Other/Miscellaneou s 02/22/2011 Administered Social History Tobacco Use: Social History Observation Description Date Details (start date - stop date) Never Smoker NA - NA Tobacco Control (Standard) Question Answer Notes Tobacco use: Nonsmoker Problems Problem Type SNOMED Code ICD Code Onset Dates Problem Status W/U Status Risk Notes Problem 80118871 Opioid dependence with other opioid-induced disorder (F11.288) Active confirmed Problem 980634713 Gastroparesis (K31.84) Active confirmed Problem Shortness of breath (119634581) Shortness of breath (R06.02) Inactive confirmed Problem Family history of diabetes mellitus (146591757) Family history of diabetes mellitus (Z83.3) Inactive confirmed Problem Hypertension (91021000) HYPERTENSION (I10) Inactive confirmed Problem Family history of ischemic heart disease (848905088) FAM HX-ISCHEM HEART DISEASE (Z82.49) Inactive confirmed Descriptio n:FAMILY HISTORY OF ISCHEMIC HEART DISEASE Problem Hyperlipidaemia (86974645) HLD (HYPERLIPIDEMIA) (E78.5) Inactive confirmed Descriptio n:HYPERLIP IDEMIA Problem Diabetes mellitus uncontrolled (535598363) UNCONTROLLED DIABETES MELLITUS (E11.65) Inactive confirmed Problem Chronic gastritis (4667349) CHRONIC GASTRITIS (K29.50) Active confirmed Problem Obese (211523930) OBESE (E66.9) Inactive confirm ed Descriptio n:OBESITY Problem Obese class I (107652376902738) BMI 33.0-33.9,ADULT (Z68.33) Inactive confirmed Problem Osteoarthritis (771527789) OSTEOARTHRITIS (M19.90) Inactive confirmed Problem Gastrointestinal hemorrhage (13029502) GASTRIC BLEED (K92.2) Inactive confirmed Problem Family history of malignant neoplasm of gastrointestinal tract (569630996) FAMILY HISTORY OF CANCER OF GI TRACT (V16.0) (V16.0) Inactive confirmed Problem Patient encounter procedure (168113900) ENCOUNTER TO ESTABLISH CARE (Z76.89) Inactive confirmed Problem History of pulmonary embolus (187487999) HISTORY OF PULMONARY EMBOLISM (V12.55) (V12.55) Inactive confirmed Problem Degenerative joint disease involving multiple joints (635674248) DEGENERATIVE JOINT DISEASE INVOLVING MULTIPLE JOINTS (M15.9) Inactive confirmed Problem 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) HDL DEFICIENCY (272.5) (272.5) Inactive confirmed Problem Delayed gastric emptying (823046237) DELAYED GASTRIC EMPTYING (K30) Active confirmed Problem Impaired glucose tolerance test (390172598) GLUCOSE INTOLERANCE (IMPAIRED GLUCOSE TOLERANCE) (R73.02) Inactive confirmed Descriptio n:IMPAIRED GLUCOSE TOLERANCE Problem Coronary artery disease (13653980) CAD (CORONARY ARTERY DISEASE) (I25.10) Inactive confirmed Comment:sp NV sp stent placement, Vital Signs Heart Rate 86 /min 08/20/2024 Blood pressure diastolic 66 mm Hg 08/20/2024 Weight-kg 75.93 kg 08/20/2024 Height 74.00 in 08/20/2024 Blood pressure systolic 111 mm Hg 08/20/2024 Weight 167.4 lbs 08/20/2024 BMI 21.49 kg/m2 08/20/2024 Encounters Encounter Location Date Provider Diagnosis [facility] Gastroenterology [address] [place] [address] [id number] 02/03/2024 Ruperto Sue [facility] Gastroenterology [address] [place] [address] [id number] 05/18/[address] SCAN, COLON R93.3 ; ABDOMINAL PAIN R10.9 and WEIGHT LOSS R63.4 [facility] Gastroenterology [address] [place] [address] [id number] 06/02/2024 Ruperto Sue [facility] Gastroenterology [address] [place] [address] [id number] 06/08/2024 Ruperto Sue [facility] Gastroenterology [address] [place] [address] [id number] 06/11/2024 Ruperto Sue [facility] Gastroenterology [address] [place] [address] [id number] 07/01/2024 Ruperto Sue DELAYED GASTRIC EMPTYING K30 [facility] Gastroenterology [address] [place] [address] [id number] 07/05/2024 Ruperto Sue [facility] Gastroenterology [address] [place] [address] [id number] 05/03/2024 Lise Shaver [facility] [address] [place] [id number] 05/26/2024 Ruperto Sue Nausea R11.0 [facility] Gastroenterology [address] [place] [address] [id number] 08/20/2024 Ruperto Sue LUQ ABDOMINAL PAIN R10.12 ; Gastroparesis K31.84 ; Early satiety R68.81 ; WEIGHT LOSS R63.4 and Opioid dependence with other opioid-induced disorder F11.288 [facility] Gastroenterology [address] [place] [address] [id number] 04/23/2024 Ruperto Sue ABDOMINAL PAIN R10.9 ; WEIGHT LOSS R63.4 and GASTRIC WALL THICKENING K31.89 [facility] CAT Dept [address] [place] [address] [id number] 05/04/2024 Ruperto Sue LAB EXAM PRE-PROCEDURAL LABORATORY EXAM (V72.63) Z01.812 and ABDOMINAL PAIN R10.9 Assessments Encounter Date Diagnosis (ICD Code) Assessment Notes Treatment Notes Treatment Clinical Notes Section Notes 04/23/2024 ABDOMINAL PAIN (ICD-10 - R10.9) 05/18/[address] SCAN, COLON (ICD-10 - R93.3) 05/26/2024 Nausea (ICD-10 - R11.0) 07/01/2024 DELAYED GASTRIC EMPTYING (ICD-10 - K30) 08/20/2024 Gastroparesis (ICD-10 - K31.84) - suspect large narcotic component to his symptoms. Will continue reglan for now, but hopefully, once off his narcotic pain medications, he will be able to come off or reduce the dosing of his reglan. 05/18/2024 ABDOMINAL PAIN (ICD-10 - R10.9) 04/23/2024 WEIGHT LOSS (ICD-10 - R63.4) 08/20/2024 LUQ ABDOMINAL PAIN (ICD-10 - R10.12) - better with reglan, suspect related to gastroparesis with associated early satiety. Needs to come off opiates as I suspect this is causing significant gastric dysmotility contributing to his symptoms. 05/04/2024 LAB EXAM PRE-PROCEDURAL LABORATORY EXAM (V72.63) (ICD-10 - Z01.812) 04/23/2024 GASTRIC WALL THICKENING (ICD-10 - K31.89) - EGD with EUS 05/03 at [facility] at 9:[address] Shaver. 05/04/2024 ABDOMINAL PAIN (ICD-10 - R10.9) 05/18/2024 WEIGHT LOSS (ICD-10 - R63.4) 08/20/2024 Early satiety (ICD-10 - R68.81) 08/20/2024 WEIGHT LOSS (ICD-10 - R63.4) 08/20/2024 Opioid dependence with other opioid-induced disorder (ICD-10 - F11.288) - patient plans for medical inpatient detox starting friday. - RTC 4 weeks Plan Of Treatment Pending Test Test Name Order Date ORTHO KNEE RIGHT 2 VIEW - [id number] 07/06/19 21 Future Test Test Name Order Date ESOPHAGOGASTRODUODENOSCOPY 05/03/2024 Insurance Providers Payer Name Payer Address Payer Phone Subscriber Number Group Number Insured Name Patient Relationship to Insured Coverage Start Date Coverage End Date [employer] MEDICARE PART B [address] [address] [place] [address] [id number] REGIS José, ALEXX Self - patient is the insured [employer] INS CO [address] [place] [address] [id number] REGIS José, ALEXX Self - patient is the insured [employer] [address] [place] [id number] [phone] REGIS José, ALEXX Self - patient is the insured 8 [employer] [address] [place] [id number] REGIS José, ALEXX Self - patient is the insured [employer] [address] [place], [place] [phone] [id number] REGIS José, ALEXX Self - patient is the insured Medications Administered Medication Instructions Date of Administration Dosage Notes Isovue-370 05/04/2024 90 mL Medical (General) History Medical History History ICD Code Problems: BMI 33.0-33.9,ADULT, ProblemSt atus: Active, DEGENERATIVE JOINT DISEASE INVOLVING MUL TIPLE JOINTS, ProblemStatus: Active, FAM HX-ISCHEM HEART DISEASE, DESCRIPTION: FAMILY HISTORY OF ISCHEMIC HEART DISEASE, ProblemStatus: Active, FAMILY HISTORY OF CANCER OF GI TRACT (V1 6.0), ProblemStatus: Active, FAMILY HISTORY OF DIABETES MELLITUS, Pro blemStatus: Active, GASTRIC BLEED, ProblemStatus: Active, GLUCOSE INTOLERANCE (IMPAIRE D GLUCOSE TOLERANCE), DESCRIPTION: IMPAIRED GLUCOSE TOLERANCE, ProblemStatus: Active, HDL DEFICIENCY (272.5), ProblemStatus: A ctive, HISTORY OF PULMONARY EMBOLISM (V12.55), ProblemStatus: Active, HLD (HYPERLIPIDEMIA), DESCRIPTION: HYPER LIPIDEMIA, ProblemStatus: Active, HYPERTENSION, ProblemStatus: Active, OBESE, DESCRIPTION: OBESITY, ProblemStat us: Active, Surgical History Surgery Date(Month/Year) Cardiac Stents d/t NV 02/2019 left hip- removed bone spurs 2002 Vasectomy, COMMENTS: 1981 Total Knee Replacement - Right, COMMENTS : 2010 Spinal Fusion - Lower Back, COMMENTS: L3 -L4 Revision of right total knee arthroplast y, COMMENTS: 2011 Cholecystectomy, COMMENTS: 1995 Carpal Tunnel Surgery - Right, COMMENTS: 1984 Benign tumor excision from right inguina l canal, COMMENTS: 2001 Arthroscopy of Knee, COMMENTS: Bilateral with meniscectomy - 2002
[2024-12-18 19:40] VITALS: BP 167/93; PULSE 83; RESP 18; TEMP 36.4; O2SAT 98; BMI 21.5
--- NOTE | 2024-12-18 20:06 | XRR_ITS ---
PROCEDURE INFORMATION: Exam: XR Right Hip Exam date and time: 12/18/2024 8:24 PM Age: 64 years old Clinical indication: Hip pain; Right hip; Prior surgery; Surgery date: 6+ months; Surgery type: Lumbar fusion, lt hip arthroplasty; Additional info: RT hip pain; Unable to bear weight TECHNIQUE: Imaging protocol: Radiologic exam of the right hip. Views: 1 view hip with pelvis when performed. COMPARISON: CT kidney stone [id number] 07/06/2023 2:18 AM FINDINGS: Bones/joints: Left hip prosthesis. Postsurgical changes of lower lumbar spine. Moderate to severe degenerative changes of right hip. Soft tissues: Unremarkable. Vasculature: Atheromatous vascular calcifications. Other findings: Four views. XR/XR hip RT 2-3V wo/w pel* [id number] IMPRESSION: No definite acute fracture, subluxation, dislocation.
--- NOTE | 2024-12-18 20:06 | XRR_ITS ---
PROCEDURE INFORMATION: Exam: XR Right Knee Exam date and time: 12/18/2024 8:24 PM Age: 64 years old Clinical indication: Pain; Right; Prior surgery; Surgery date: 6+ months; Surgery type: RT total knee with revision x 2 (last 2012); Additional info: Pain, cant walk TECHNIQUE: Imaging protocol: Radiologic exam of the right knee. Views: 3 views. COMPARISON: [place] [id number] 12/18/2024 8:24 PM FINDINGS: Bones/joints: Right knee prosthesis. Soft tissues: Normal. Vasculature: Heavy atheromatous vascular calcifications. Other findings: Five views. XR/XR knee RT 3V* [id number] IMPRESSION: No definite acute fracture, subluxation, dislocation.
--- NOTE | 2024-12-18 20:06 | USR_ITS ---
PROCEDURE INFORMATION: Exam: US Duplex Right Lower Extremity Veins, Limited Exam date and time: 12/18/2024 8:24 PM Age: 64 years old Clinical indication: Pain; Leg, upper; Prior surgery; Surgery date: 6+ months; Surgery type: Right knee 2012; Additional info: Right leg pain, atraumatic, HX of surgery TECHNIQUE: Imaging protocol: Real-time duplex ultrasound of the right extremity with 2-D figueroa scale, color Doppler flow and spectral waveform analysis including responses to compression and other maneuvers (when performed) with image documentation. Limited exam was focused on the right lower extremity veins. COMPARISON: US scrotum [id number] 12/18/2023 9:27 AM FINDINGS: Right deep veins: Unremarkable. The common femoral, femoral, proximal profunda femoral and popliteal veins are patent without thrombus. Normal Doppler waveforms. Normal compressibility and/or augmentation response. Superficial veins: Greater saphenous vein at the saphenofemoral junction is patent without thrombus. Soft tissues: Unremarkable. US/[place] [id number] IMPRESSION: No evidence of deep vein thrombosis.
[2024-12-18] MEDS: orphenadrine 30 mg/mL Inj 2 mL 60 MG IM (20:53)
--- NOTE | 2024-12-18 22:14 | W.ED.EXTPRO ---
HPI - Extremity Problem General: Chief complaint: Extremity Problem,Nontraumatic Stated complaint: Rt hip and leg pain Time Seen by Provider: 12/18/24 19:27 Source: patient Mode of arrival: ambulatory Limitations: no limitations History of Present Illness: Patient is a six 4-year-old male who reports to emergency department complaining of right lower extremity pain for a week. Reports a history of left hip fracture, states that this feels the same though he does not report any known injury. States that the pain started in his hip, is now on his knee, and that he has had 3 prior knee surgeries. States that he cannot get comfortable, he has been taking Tylenol at home with no relief. He is set to see orthopedics on Friday for an MRI of the area, states that he is just here to get pain relief. No fever or systemic symptoms. No swelling or signs of DVT. States that the pain can be felt in the groin as well. No bowel or bladder incontinence or saddle anesthesia. MD Complaint: extremity pain Location: right and lower extremity Severity scale (1-10): 10 Exacerbating factors: range of motion, weight bearing and walking Associated symptoms: Deny chest pain, fever(s) or rash Related Data Home Medications ?Medication ?Instructions ?Recorded ?Confirmed glipizide 10 mg tablet 10 mg PO BID 05/30/23 12/18/23 metformin 1,000 mg tablet 500 mg PO BID 07/28/23 12/18/23 hydrocodone 5 mg-acetaminophen 325 1 tab PO Q6H PRN Pain, Severe 12/18/23 12/18/23 mg tablet Previous Rx's ?Medication ?Instructions ?Recorded pen needle, diabetic 29 gauge x #100 ea 05/02/2305/13 (BD Ultra-Fine Original Pen Needle) blood-glucose sensor (Dexcom G7 #1 ea 05/30/23 Sensor device) blood-glucose,career resource specialist,cont #1 ea 05/30/23 (Dexcom G7 Body Repairer) hydrochlorothiazide 12.5 mg tablet 12.5 mg PO DAILY #30 tabs 06/03/23 Lantus Solostar U-100 Insulin 100 See Rx Instructions .Route 12/01/23 unit/mL (3 mL) subcutaneous pen .COMPLEX #15 mL (insulin glargine) diclofenac sodium 75 mg 75 mg PO Q12H PRN pain #20 tabs 12/18/23 tablet,delayed release hydrocodone 5 mg-acetaminophen 325 1 tab PO Q6H PRN pain #12 tabs 12/18/23 mg tablet methylprednisolone 4 mg tablets in See Rx Instructions PO .COMPLEX 12/18/23 a dose pack (Medrol (Luis)) #21 ea tamsulosin 0.4 mg capsule 0.4 mg PO DAILY #30 caps 12/18/23 omeprazole 40 mg capsule,delayed 40 mg PO DAILY #90 caps 08/30/24 release cyclobenzaprine 5 mg tablet 5 mg PO Q8H #10 tabs 12/18/24 lidocaine 5 % topical patch See Rx Instructions topical 12/18/24 .COMPLEX #15 ea Allergies Allergy/AdvReac Type Severity Reaction Status Date / Time hydromorphone (From Dilaudid) Allergy ADR-Vomitin Verified 12/18/24 19:42 g Review of Systems General: Reports: 10 or more systems reviewed and unremarkable except in HPI and below Const: Denies: fever(s) or chills Card: Denies: chest pain Resp: Denies: dyspnea or productive cough GI: Denies: abdominal pain, nausea, vomiting or diarrhea : Denies: flank pain Musc: Reports: extremity pain (Right lower extremity) and joint pain (Right hip and right knee); Denies: neck pain, back pain, extremity swelling, joint swelling, joint redness, joint warmth or muscle weakness Skin/Breast: Denies: rash Neuro: Denies: headache(s), numbness in extremities or weakness in extremities PFSH ED PFSH: Medical History Myocardial infarction S/P stent - 2019, other lesions 40 and 60% blocked Thyroid nodule Biopsy in 2016 - [facility] History of DVT (deep vein thrombosis) 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 Diabetes mellitus type 2, uncontrolled Surgical History Benign tumor of groin Right groin tumor removal - Benign History of lumbar surgery L4-L5 surgery History of hip surgery H/O left knee surgery Scope for torn MCL History of cholecystectomy Hx of carpal tunnel repair right History of knee replacement Right knee x 3 - last 2013 Family History Father Colon cancer in 2010 Mother Alzheimer's dementia Social History Smoking and tobacco/nicotine status: never used tobacco/nicotine Alcohol intake: never Substance/Drug Use: never Physical Exam Const: COMMON NORMALS: patient oriented x3, no limitations, healthy appearing, alert and well nourished OTHER: Appears uncomfortable secondary to pain HENMT: COMMON NORMALS: normocephalic and atraumatic HEAD & SCALP: normocephalic and atraumatic Neck/C-Spine: COMMON NORMALS: full ROM, supple and no meningeal signs Resp: COMMON NORMALS: normal respiratory effort, No use of accessory muscles and clear to auscultation bilaterally AUSCULTATION: clear to auscultation bilaterally Cardio: COMMON NORMALS: regular rate and regular rhythm RATE: regular rate RHYTHM: regular rhythm Extremity: COMMON NORMALS: normal to inspection, full ROM, capillary refill normal, no joint enlargement and no clubbing, cyanosis or edema NARRATIVE EXTREMITY EXAM: Postoperative scar to right anterior knee, diffusely tender to palpation though no swelling or bruising noted. He has full range of motion of the hip and knee, tender to palpation to the right lateral hip. No spinous process tenderness, and normal range of motion of the back. Neuro: COMMON NORMALS: patient oriented x3, moves all extremities, no focal motor deficits and no sensory deficits noted SENSORIUM/ORIENTATION: Yes alert MENINGEAL SIGNS: Yes no meningeal signs Skin: COMMON NORMALS: no rashes or lesions noted GENERAL SKIN EXAM: no rashes or lesions noted Course Vital Signs: Vital signs: Vital Signs Temperature 97.6 F 12/18/24 19:40 Pulse Rate 83 12/18/24 19:40 Respiratory Rate 18 12/18/24 19:40 Blood Pressure 167/93 12/18/24 19:40 Pulse Oximetry 98 12/18/24 19:40 Oxygen Delivery Me thod Room Air 12/18/24 19:40 MDM - Extremity (Nontraumatic) Medical Decision Making Patient has pain along his entire right lower extremity, with no specific inciting event and this is bothering him for a week. He has an appointment with orthopedics on Friday, states he is just here to make sure that there is nothing serious going wrong and that we can help his pain. Ultrasounds performed to rule out DVT, this was negative. X-ray of the right hip and right knee were negative. At this time this could be a lumbar radiculopathy versus complex regional pain syndrome versus other etiology, however nothing appears to be emergent and we were able to improve his pain here in the emergency department. He will be sent prescriptions to pharmacy and continue follow-up on Friday. Agrees with discharge plan at this time. Lab Data Radiology Impressions Hip/Pelvis X-Ray 12/18/24 20:06 IMPRESSION: No definite acute fracture, subluxation, dislocation. Knee X-Ray 12/18/24 20:06 IMPRESSION: No definite acute fracture, subluxation, dislocation. Venous Duplex 12/18/24 20:06 IMPRESSION: No evidence of deep vein thrombosis. All radiology interpretation(s) finalized by discharge Discharge Plan Discharge Patient Disposition: Home Clinical Impression: Leg pain, right Condition: Stable Prescriptions: New cyclobenzaprine 5 mg tablet 5 mg PO Q8H Qty: 10 0RF lidocaine 5 % adhesive patch,medicated See Rx Instructions .ROUTE .COMPLEX Qty: 15 0RF Rx Instructions: leave on most painful area for up to 12 hrs Discontinued tizanidine 4 mg tablet 4 mg PO Q6H PRN (Reason: muscle spasticity) Qty: 20 0RF Rx Instructions: do not exceed 3 doses per 24 hrs No Action (DME) Dexcom G7 Body Repairer Misc See Rx Instructions .Route Qty: 1 0RF Rx Instructions: As directed (DME) Dexcom G7 Sensor Device See Rx Instructions .Route Qty: 1 0RF Rx Instructions: As directed glipizide 10 mg tablet 10 mg PO BID metformin 1,000 mg tablet 500 mg PO BID (DME) pen needle, diabetic [BD Ultra-Fine Orig Pen Needle] 29 gauge x 1/2 needle See Rx Instructions .Route Qty: 100 3RF Rx Instructions: As directed hydrochlorothiazide 12.5 mg tablet 12.5 mg PO DAILY Qty: 30 6RF insulin glargine [Lantus Solostar U-100 Insulin] 100 unit/mL (3 mL) insulin pen See Rx Instructions .ROUTE .COMPLEX Qty: 15 6RF Dose Instruction: INJECT 30 UNITS UNDER THE SKIN ONCE DAILY. INCREASE BY 5 UNITS EVERY 3 DAYS IF ALL FASTING GLUCOSE ABOVE 150 Rx Instructions: INJECT 30 UNITS UNDER THE SKIN ONCE DAILY. INCREASE BY 5 UNITS EVERY 3 DAYS IF ALL FASTING GLUCOSE ABOVE 150 omeprazole 40 mg capsule,delayed release(DR/EC) 40 mg PO DAILY Qty: 90 3RF hydrocodone-acetaminophen 5-325 mg tablet 1 tab PO Q6H PRN (Reason: Pain, Severe) tamsulosin 0.4 mg capsule 0.4 mg PO DAILY Qty: 30 0RF hydrocodone-acetaminophen 5-325 mg tablet 1 tab PO Q6H PRN (Reason: pain) Qty: 12 0RF diclofenac sodium 75 mg tablet,delayed release (DR/EC) 75 mg PO Q12H PRN (Reason: pain) Qty: 20 0RF Medrol (Luis) 4 mg tablets,dose pack See Rx Instructions .ROUTE .COMPLEX Qty: 21 0RF Rx Instructions: orally per package directions Discharge Orders: Discharge ED (Routine); Ordered 12/18/24 Ordered By: Say Munroe Referrals: Carrillo Suarez MD [Primary Care Provider, [facility]] Patient Instructions: Opioid Safety, Pain Management, Patient Portal & [facility] Instructions Activity Restrictions/Additional Instructions: Discharge instructions These are instructions to help manage right hip and knee pain safely at home. Today?s tests did not show a blood clot, fracture, or other emergency. An orthopedic appointment for MRI is scheduled; keeping that visit is important to look for soft tissue causes of pain. What to do at home - Activity: Rest the leg from painful activities for the next 48?72 hours, then gradually return to light activity as tolerated. Short, frequent walks are better than prolonged bed rest. Use a cane or handrail on stairs if needed for stability. - Ice/heat: - First 48 hours: Ice packs 15?20 minutes at a time, 3?4 times daily to reduce pain and swelling. - After 48 hours: Use heat 15?20 minutes before gentle movement if stiffness is the main issue; switch back to ice if swelling increases. - Elevation and compression: When sitting or lying down, elevate the leg on pillows. A light elastic wrap can reduce swelling if comfortable and not too tight (no numbness/tingling, normal color). Medications - Lidocaine patches: Apply 1 patch to the most painful area of the hip or knee, up to 12 hours on then [address] on broken skin. This topical treatment can help pain and avoids stomach and sedation side effects seen with some pills. - Cyclobenzaprine 5 mg: Take 1 tablet by mouth at bedtime as needed for muscle spasm. If daytime use is necessary, avoid driving, alcohol, and other sedatives due to drowsiness. Use the lowest effective dose for the shortest time. - Oxycodone (short supply provided): Use only for breakthrough severe pain not controlled by the above. Typical rescue dosing is 5 mg by mouth every 6?8 hours as needed for the shortest possible time, ideally no more than 3 days, and no more than the amount provided. Do not combine with alcohol, benzodiazepines, sleep medicines, or other sedatives; store locked and out of reach of others; unused pills should be taken to a drug take-back site. Opioids can cause constipation, nausea, sleepiness, and increase the risk of falls; they should be used sparingly because benefits are modest and risks are higher compared with many nonopioid options. - [id number] options (if previously tolerated and not otherwise restricted by your clinician): - Acetaminophen: 500?1,000 mg up to every 6?8 hours as needed (maximum 3,000 mg/day in older adults or if using regularly). Helpful for short-term pain and generally safe on the stomach when used within dose limits. - Oral NSAID (e.g., ibuprofen or naproxen) may be considered if your clinician has not advised against it for kidney, heart, blood pressure, or stomach reasons. NSAIDs can help short-term pain but should be used at the lowest effective dose for the shortest time and avoided if you have kidney disease, prior stomach bleeding/ulcers, or certain heart conditions. - Do not combine more than one NSAID at a time. Avoid NSAIDs if you are on blood thinners unless cleared by your clinician. - Avoid combining sedating medicines (cyclobenzaprine, opioids, alcohol, sleep aids) because of additive drowsiness and fall/respiratory risks. Why these treatments - For acute musculoskeletal injuries, nonopioid options (topical therapies, acetaminophen, and?if safe?short courses of NSAIDs) provide modest pain relief with fewer harms than opioids. National guidelines from the [employer] and the [place] [employer] recommend against routine opioid use for these injuries because harms often outweigh benefits; if used, keep duration and dose minimal. - Muscle relaxants like cyclobenzaprine can help short-term in some cases but often cause sedation; lower doses and nighttime use reduce side effects. - Lidocaine patches can reduce localized pain and have a favorable safety profile, especially in older adults. Follow-up - Keep the scheduled orthopedic visit for MRI to evaluate soft tissues (cartilage, tendons, labrum/meniscus) that do not show on X-ray. Bring these instructions and today?s results to that visit. - If pain is not improving over 7?10 days, or if function is worsening, contact the clinic for reassessment. Early guided exercise/physical therapy is often helpful once serious causes are ruled out. Return to the emergency department now for any of the following - New or worsening numbness, weakness, or trouble moving the leg. - Fever, chills, or the joint becoming very red, hot, or markedly swollen. - Chest pain, shortness of breath, coughing up blood, or sudden severe calf swelling (even though a clot was not seen today, new symptoms need urgent evaluation). - Inability to bear weight or a fall with new deformity. - Severe uncontrolled pain despite rescue medication. - Side effects from medicines such as severe drowsiness, confusion, fainting, trouble breathing, or signs of an allergic reaction (rash, swelling of face/lips/tongue, difficulty swallowing). Safe use and storage of opioids - Take only as prescribed; do not exceed one pill at a time or take more often than directed. - Do not share; store in a locked location. - Dispose of unused pills at a pharmacy drug take-back site. If unavailable, follow local guidance for disposal. Prolonged use can develop even after short courses, so limit to the smallest amount needed. Expectations - Most people improve over several days to a week with rest, gradual movement, and the treatments above. Some soreness is expected; steady improvement is the goal. Call if pain is not trending better or if new symptoms appear. Print Language: Malagasy Coding Level of Care Code ED Biometric Technician for Brandie Kaplan
== END 2024-12-18 22:29 | disposition home or self-care (01) ==
PROVIDERS: Emergency Provider Physician Assistant; PCP Family Medicine
DX: M79.604 Pain in right leg (principal); Z79.84 Long term (current) use of oral hypoglycemic drugs; E11.9 Type 2 diabetes mellitus without complications
CPT/HCPCS: 73502; 73562; 93971; 96372; 99284; J1100; J1885; J2360

== ENCOUNTER 2025-01-28 11:17 | Outpatient (CLI) | payer MEDICARE, OTHER, SELFPAY ==
[2025-01-28 12:35] LABS: INR 1.17 (0.8-1.2); Prothrombin Time 15.70 SECONDS (12.1-14.9)
== END 2025-01-28 11:18 | disposition home or self-care (01) ==
PROVIDERS: PCP Family Medicine; Visit Provider Orthopaedic Surgery Adult Reconstructive Orthopaedic Surgery
DX: R79.1 Abnormal coagulation profile (principal)
CPT/HCPCS: 85610

== ENCOUNTER 2025-02-01 13:30 | Outpatient (CLI) | payer MEDICARE, OTHER, SELFPAY ==
[2025-02-01 14:12] LABS: INR 2.48 (0.8-1.2); Prothrombin Time 28.30 SECONDS (12.1-14.9)
== END 2025-02-01 13:31 | disposition home or self-care (01) ==
LOC: LAB 13:33
PROVIDERS: PCP Family Medicine; Visit Provider Orthopaedic Surgery Adult Reconstructive Orthopaedic Surgery
DX: R79.1 Abnormal coagulation profile (principal)
CPT/HCPCS: 85610

== ENCOUNTER 2025-02-03 09:02 | Outpatient (CLI) | payer MEDICARE, OTHER, SELFPAY ==
[2025-02-03 10:43] LABS: INR 2.05 (0.8-1.2); Prothrombin Time 24.40 SECONDS (12.1-14.9)
== END 2025-02-03 09:03 | disposition home or self-care (01) ==
LOC: LAB 09:05
PROVIDERS: PCP Family Medicine; Visit Provider Orthopaedic Surgery Adult Reconstructive Orthopaedic Surgery
DX: Z86.718 Personal history of other venous thrombosis and embolism (principal); M16.11 Unilateral primary osteoarthritis, right hip
CPT/HCPCS: 85610

== ENCOUNTER 2025-02-07 11:24 | Outpatient (CLI) | payer MEDICARE, OTHER, SELFPAY ==
[2025-02-07 12:24] LABS: INR 1.88 (0.8-1.2); Prothrombin Time 22.70 SECONDS (12.1-14.9)
== END 2025-02-07 11:25 | disposition home or self-care (01) ==
PROVIDERS: PCP Family Medicine; Visit Provider Orthopaedic Surgery Adult Reconstructive Orthopaedic Surgery
DX: Z86.718 Personal history of other venous thrombosis and embolism (principal); M16.11 Unilateral primary osteoarthritis, right hip
CPT/HCPCS: 85610

== ENCOUNTER 2025-02-10 08:59 | Outpatient (CLI) | payer MEDICARE, OTHER, SELFPAY ==
[2025-02-10 09:55] LABS: INR 2.27 (0.8-1.2); Prothrombin Time 26.40 SECONDS (12.1-14.9)
== END 2025-02-10 09:00 | disposition home or self-care (01) ==
LOC: LAB 09:01
PROVIDERS: PCP Family Medicine; Visit Provider Orthopaedic Surgery Adult Reconstructive Orthopaedic Surgery
DX: Z86.718 Personal history of other venous thrombosis and embolism (principal)
CPT/HCPCS: 85610

== ENCOUNTER 2025-02-14 14:45 | Outpatient (CLI) | payer MEDICARE, OTHER, SELFPAY ==
[2025-02-14 15:14] LABS: INR 2.53 (0.8-1.2); Prothrombin Time 28.70 SECONDS (12.1-14.9)
== END 2025-02-14 14:46 | disposition home or self-care (01) ==
LOC: LAB 14:48
PROVIDERS: PCP Family Medicine; Visit Provider Orthopaedic Surgery Adult Reconstructive Orthopaedic Surgery
DX: Z86.718 Personal history of other venous thrombosis and embolism (principal)
CPT/HCPCS: 85610

== ENCOUNTER 2025-02-21 09:29 | Outpatient (CLI) | payer MEDICARE, OTHER, SELFPAY ==
[2025-02-21 10:12] LABS: INR 1.16 (0.8-1.2); Prothrombin Time 15.60 SECONDS (12.1-14.9)
== END 2025-02-21 09:30 | disposition home or self-care (01) ==
LOC: LAB 09:32
PROVIDERS: PCP Family Medicine; Visit Provider Orthopaedic Surgery Adult Reconstructive Orthopaedic Surgery
DX: Z86.718 Personal history of other venous thrombosis and embolism (principal)
CPT/HCPCS: 85610